=== PATIENT | male | born 1945 | race Caucasian/White ===

== ENCOUNTER 2024-03-29 14:21 | Inpatient (IN) | payer OTHER, SELFPAY ==
[2024-03-29] VITALS (11 sets, daily range): BP systolic 137–188; BP diastolic 53–92; BMI 43.3
--- NOTE | 2024-03-29 09:54 | ED.GENMED ---
History of Present Illness
General
Chief Complaint: Breathing Problem
Source: patient and ambulance crew
Exam Limitations: none
Time Seen by Provider: 03/29/24 09:53
Nursing documentation reviewed up to this point in time: agreed with
History of Present Illness
History of Present Illness:
Patient is a 79-year-old man with a past medical history of high blood pressure, coronary artery disease, and reported A-fib, who reports shortness of breath that started this morning. Patient denies cough, mucus production, fatigue, fevers and
chills. Reports that he is generally active and gets around well. He is also noticed mild swelling in both of his legs. He denies a history of PE and DVT. He denies any chest pain. Patient reports shortness of breath is worse on exertion
Past History
Past History
ED Past Medical History: HTN and KS
ED Past Surgical History: Cardiac (CABG, loop recorder), Orthopedic and Urological
Social History
Tobacco: Former smoker
Alcohol: None
Drug: None
Personal: Other
Living: penitentiary
Employment: Retired
Family History
Family History: Other
Review of Systems
Review of Systems
Allergies reviewed?: Yes
All Other Systems: ROS reviewed and negative except as documented in HPI and ROS
Constitutional: Reports no symptoms
EENT: Reports no symptoms
Respiratory: Reports trouble breathing
Cardiac: Reports no symptoms
ABD/GI: Reports no symptoms
: Reports no symptoms
Musculoskeletal: Reports edema
Skin: Reports no symptoms
Neurological: Reports no symptoms
Endocrine: Reports no symptoms
Hematologic/Lymphatic: Reports no symptoms
Psychiatric: Reports no symptoms
Phy Exam
Physical Exam
Physical Exam:
Physical Exam
General: no apparent distress, not acutely ill. Mildly tachypneic at rest but speaks in full sentences
Neck: supple. no meningeal signs. normal psoterior pharynx
Heart: Regular, bradycardic
Lungs: Decreased breath sounds bilaterally with rales at bases
Abdomen: normal bowel sounds. not tender. no CVAT
Neuro: alert and oriented. no focal neurological deficits
Skin: no rash
Psychiatric: well kept. interactive and cooperative
Extremities: 1+ pitting edema in bilateral lower extremities. Nontender calves. Negative Homans' sign
Scores
Heart Failure Risk
Heart Failure Risk Score: Not Applicable
Course
Orders/Labs/Results
Orders:
Orders
03/29/24 09:54
Electrocardiogram (*1) Stat
Reason for Study: Other
Other Reason for Exam: chest pain
EKG- Treatment ONCE
CR Chest - 2 Views Urgent
Comment:
Reason For Exam: SOB
03/29/24 10:02
Complete Blood Count/With Diff Urgent
Comprehensive Metabolic Panel Urgent
NT-proBNP Urgent
Troponin I Urgent
03/29/24 10:53
Furosemide [Lasix] 40 mg IV NOW STA
03/29/24 13:32
COVID-19 Antigen Stat
Source: Nasal Swab
Influenza A+B Rapid Molecular Stat
JESSICA Source: Nasal Swab
Specimen Description:
03/29/24 13:45
EKG [Electrocardiogram (*1)] Urgent
Reason for Study: Shortness of Breath
EKG- Treatment ONCE
03/29/24 13:48
Add On- LAB Urgent
Tests Added?: TSH with reflex FT4, HgbA1c, lipid panel
EKG [Electrocardiogram (*1)] Stat
Reason for Study: Bradycardia / Tachycardia
03/29/24 13:49
Urine Creatinine Urgent
Urine Reflex Culture from UA [Urinalysis Reflex To Culture] Urgent
Urine Sodium Urgent
03/29/24 13:52
DDimer [D-Dimer] Stat
03/29/24 13:55
CARDIOLOGY CONSULT Routine
Consulting Provider: Hazel Caban
Was physician already notified: Yes
Reason for consult: bradycardia, CHF, dyspnea
03/29/24 13:56
Echo 2D MMode Color/Doppler Routine
Reason for Study: chf
03/29/24 14:00
Troponin I Q6H
03/29/24 20:00
Troponin I Q6H
03/30/24 02:00
Troponin I Q6H
03/30/24 08:00
Troponin I Q6H
Abnormal Lab Results
03/29/24
10:02
RBC 3.99 L 10^6/uL
(4.70-6.10)
Hgb 11.3 L g/dL
(13.0-18.0)
Hct 35.9 L %
(39.0-52.0)
MCHC 31.5 L g/dL
(33.0-37.0)
Absolute Monos (auto) 0.7 H 10^3/uL
(0.1-0.6)
Lymphocytes % 19.3 L %
(20.5-51.1)
Chloride 112 H mmol/L
(98-107)
Carbon Dioxide 19 L mmol/L
(22-30)
BUN 30 H mg/dl
(9-20)
Creatinine 1.9 H mg/dL
(0.7-1.3)
Glucose 116 H mg/dl
(70-99)
AST 14 L U/L
(17-59)
03/29/24 10:02
03/29/24 10:02
Vital Signs
Initial and Last Documented VS:
Initial Vital Signs
Temp Pulse Resp BP Pulse Ox
98.6 F 69 25 145/73 95
03/29/24 09:44 03/29/24 09:44 12/09/24 09:44 03/29/24 09:44 03/29/24 09:44
Last Documented Vital Signs
Temp Pulse Resp BP Pulse Ox
98.6 F 55 26 165/53 93
03/29/24 09:44 03/29/24 14:00 03/29/24 14:00 03/29/24 13:00 03/29/24 14:00
MDM/Problems Addressed
Differential Diagnosis Includes:
Acute CHF, pneumonia, acute coronary syndrome, PE
MDM/Problems Addressed:
Patient arrives with acute shortness of breath
Chronic conditions affecting care: CAD
Acute Exacerbation and/or Progression of Chronic Illness:
Patient may have acute exacerbation of ACS
Acute Exacerbation and/or Progression of Chronic Illness: CAD
*Radiology
Radiology exam reviewed: preliminary read by ED provider (Cardiomegaly with pulmonary edema. Chest x-ray reviewed by me) and radiology read reviewed
*Pulse Oximetry
Patient hypoxic: no
*EKG
Interpreted by ED Provider?: Yes
Interpretation: abnormal
Rate: bradycardiac
Rhythm: PVC's
[place]: normal axis
Interval: first degree heart block
QRS Pattern: low voltage
Ischemia: non-specific ST changes
*Trimmer Tailer Interpretation
Rate: bradycardiac
Interpretation: normal
Rhythm: sinus
*Critical Care Note
Total Time (30-74mins, 75-104mins- exclusive of procedures): Not Applicable
ED Attending Note
-
Portions of this chart may have been created with voice recognition software.� Occasional wrong word or��sound alike� substitutions may have occurred due to the inherent limitations of voice recognition software.
Discharge Plan
Departure
Patient Disposition: Admit
Date of Disposition: 03/29/24
Time of Disposition: 10:53
Admit to: Telemetry
Presentation/result/management discussed w/ accepting MD/DO: Hospitalist
Patient with high blood pressure during this ER visit?: Yes
Condition: Good
Covid-19: Not Applicable
Discharge Problem:
Acute respiratory failure, Acute congestive heart failure
Prescriptions:
No Action
furosemide 40 mg Tablet
40 mg PO DAILY
atorvastatin 40 mg Tablet
40 mg PO DAILY
metformin 500 mg Tablet
500 mg PO BID
donepezil 10 mg Tablet
10 mg PO DAILY
metoprolol succinate 100 mg Tablet Extended Release 24 Hr
100 mg PO BID
pioglitazone 45 mg Tablet
45 mg PO DAILY
hydralazine 25 mg Tablet
25 mg PO BID
clopidogrel 75 mg Tablet
75 mg PO DAILY
pantoprazole 20 mg Tablet,Delayed Release (Dr/Ec)
20 mg PO DAILY
tamsulosin 0.4 mg Capsule
0.8 mg PO DAILY
amlodipine 10 mg Tablet
10 mg PO DAILY
isosorbide mononitrate 10 mg Tablet
5 mg PO QPM
oxybutynin chloride 5 mg Tablet
5 mg PO BID
finasteride 5 mg Tablet
5 mg PO DAILY
escitalopram oxalate 10 mg Tablet
10 mg PO DAILY
melatonin 5 mg Tablet
5 mg PO HS
potassium chloride 20 mEq Tablet Extended Release
20 meq PO DAILY
Referrals:
Edmundo Dozier MD [Family Provider] -
Interventions
Interventions:
*Risk Screen - Suicide Last Done: 03/29/24 09:44
*General Assessment Last Done: 03/29/24 09:44
*Neglect/Abuse Screening Last Done: 03/29/24 09:44
ED- Fall Risk Assessment Last Done: 03/29/24 09:59
*ED COVID-19 Vaccine History Last Done: 03/29/24 09:44
ED- Cardiac Assessment Last Done: 03/29/24 09:59
ED- Pulmonary Assessment Last Done: 12/09/24 09:59
Discharge Date and Time
Print Language: HAITIAN
[2024-03-29 10:18] LABS: % Basophils 0.7 % (0-2); % Immature Granulocytes 0.5 % (0-0.5); % Lymphocytes 19.3 % (20.5-51.1); % Monocytes 8.7 % (1.7-9.3); % Neutrophils 68.8 % (42.2-75.2); Absolute Basophils 0.1 10^3/uL (0-0.2); Absolute Eosinophils 0.2 10^3/uL (0-0.7); Absolute Lymphocytes 1.5 10^3/uL (1.2-3.4); Absolute Monocytes 0.7 10^3/uL (0.1-0.6); Absolute Neutrophils 5.2 10^3/uL (1.4-6.5); Hematocrit 35.9 % (39.0-52.0); Hemoglobin 11.3 g/dL (13.0-18.0); Mean Corp Hgb Conc. 31.5 g/dL (33.0-37.0); Mean Corpuscular Hgb 28.3 pg (27.0-31.0); Mean Platelet Volume 9.7 fL (7.4-10.4); Nucleated Red Blood Cells % 0 % (-); Platelet Count 200 10^3/uL (130-400); Red Blood Cell Count 3.99 10^6/uL (4.70-6.10); Red Cell Dist. Width 13.4 % (11.5-14.5); White Blood Cell Count 7.6 10^3/uL (4.8-10.8)
[2024-03-29 10:31] LABS: ALT (SGPT) 16 U/L (0-50); AST (SGOT) 14 U/L (17-59); Albumin 4.1 g/dl (3.5-5.0); Alkaline Phosphatase 90 U/L (38-126); Blood Urea Nitrogen 30 mg/dl (9-20); Carbon Dioxide 19 mmol/L (22-30); Chloride 112 mmol/L (98-107); Estimated Creatinine Clearance 39 ml/min; Glucose 116 mg/dl (70-99); Potassium 4.6 mmol/L (3.5-5.1); Sodium 141 mmol/L (135-145); Total Bilirubin 0.7 mg/dl (0.2-1.3); Total Protein 6.7 g/dl (6.3-8.2); eGFR 35.44
[2024-03-29 10:40] LABS: NT-proBNP 6050 pg/ml; Troponin I 0.021 ng/ml
[2024-03-29] MEDS: LASIX 40 MG IV (11:27)
[2024-03-29 14:00] LABS: COVID-19 Antigen Negative (Negative)
--- NOTE | 2024-03-29 14:10 | HPS.HSE ---
Family Physician
-
Family Physician: Edmundo Dozier
Chief Complaint
-
dyspnea
History of Present Illness
79yo M with PMHX of CAD s/p CABG 6 years ago, DM, BPH, CHF, anxiety, HTN, HLD, GERD came from [facility] with acute onset of dyspnea without hypoxia. ProBMP elevated to 6050 with b/l LE swelling and signs of vascular congestion on XR as
well as LLL consolidation.
Medical History
Past Medical History
Past Medical History: Reports Other
Additional Past Medical History:
See HPI
Past Surgical History: Reports Other
Additional Past Surgical History:
See HPI
Social History
Tobacco: Former Smoker
Alcohol: None
Drug: None
Family History
Family History: Not pertinent
Allergies / Home Medications
Allergies reflects when Allergies were last updated in [facility].
Home Medications with original date entered in [facility]
Allergy/Medication List:
Allergies
Allergy/AdvReac Type Severity Reaction Status Date / Time
Penicillins Allergy Hives Verified 03/29/24 10:03
Home Medications
amlodipine 10 mg tablet 10 mg PO DAILY 03/29/24
atorvastatin 40 mg tablet 40 mg PO DAILY 03/29/24
clopidogrel 75 mg tablet 75 mg PO DAILY 03/29/24
donepezil 10 mg tablet 10 mg PO DAILY 03/29/24
escitalopram oxalate 10 mg tablet 10 mg PO DAILY 03/29/24
finasteride 5 mg tablet 5 mg PO DAILY 03/29/24
furosemide 40 mg tablet 40 mg PO DAILY 03/29/24
hydralazine 25 mg tablet 25 mg PO BID 03/29/24
isosorbide mononitrate 10 mg tablet 5 mg PO QPM 03/29/24
melatonin 5 mg tablet 5 mg PO HS 03/29/24
metformin 500 mg tablet 500 mg PO BID 03/29/24
metoprolol succinate 100 mg tablet,extended release 24 hr 100 mg PO BID 03/29/24
oxybutynin chloride 5 mg tablet 5 mg PO BID 03/29/24
pantoprazole 20 mg tablet,delayed release 20 mg PO DAILY 03/29/24
pioglitazone 45 mg tablet 45 mg PO DAILY 03/29/24
potassium chloride 20 mEq tablet,extended release 20 meq PO DAILY 03/29/24
tamsulosin 0.4 mg capsule 0.8 mg PO DAILY 03/29/24
Review of Systems
-
History Source: Patient
A 12 point ROS was completed and negative except as noted: Yes
Respiratory: Reports See HPI
Cardiac: Denies Chest Pain
Physical Exam
Vital Signs
Vital Signs
Temp Pulse Resp BP Pulse Ox
98.6 F 55 26 165/53 93
03/29/24 09:44 03/29/24 14:00 03/29/24 14:00 03/29/24 13:00 03/29/24 14:00
Physical Exam
General: No Apparent Distress
HEENT: NormoCephalic
Respiratory: No Wheezes or Rales
Cardiac: S1/S2, Regular Rhythm and Bradycardia
GI: Soft, Non Tender and Non Distended
Genito-urinary: No costovertebral tender
Musculoskeletal: No Clubbing, No Cyanosis, Edema, Left Lower Extremity and Edema, Right Lower Extremity
Skin: Warm
Neuro: Awake, Alert, Oriented and AO x 3
Psych: Calm
Laboratory Results
-
03/29/24 10:02
03/29/24 10:02
Laboratory Results
Total Bilirubin 0.7 mg/dl (0.2-1.3) 03/29/24 10:02
AST 14 U/L (17-59) L 03/29/24 10:02
ALT 16 U/L (0-50) 03/29/24 10:02
Alkaline Phosphatase 90 U/L (38-126) 03/29/24 10:02
Troponin I 0.021 ng/ml 03/29/24 10:02
Data Reviewed
-
Diagnostic Radiology: Report Reviewed by me
Lab Data: Labs Reviewed by me
Impression/Plan
-
A/P:
#Dyspnea without hypoxia with concern for possible CHF
#Bradycardia
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
Lasix, daily weight, electrolytes, I&O
Echo
Follow serial trop
Avoid BB and CCB
Telemetry, Atropin PRN
Due to acute onset - reasonable to r/o PE with DDimer as Wells score low
Ceftriaxone/DOxy
Check COVID-19, Influenza PCR
Legionella and S. Pneumonia urine Ag
CHeck TSH
#EBENEZER
unclear baseline Cr
Follow Cr and check urine studies. Suspect improvement with diuresis as cardiorenal possible
#Essential HTN
#GERD
#BPH
#HLD
cont home meds
watch for urinary retention
#DM type 2 with nephropathy
Accuchecks, Insulin SS, DM diet
Hold oral antiglycemics
DVT ppx on Hep
FUll code - discussed in details with patient
I have spent at least 79min reviewing chart, test results, communication with consultants and direct patient care
[2024-03-29 14:50] LABS: Troponin I 0.022 ng/ml
--- NOTE | 2024-03-29 14:53 | CON.CAR ---
Addendum entered and electronically signed by Hazel Caban DO 03/29/24 17:31:
Return to room with son present. Patient was moved to this area in September but not initially at [facility]. Has only been at [facility] for about 1 week. Per son and patient there is no history of atrial fibrillation which is why the Linq was placed.
Will try to interrogate Linq tomorrow. Both patient and son deny known history of renal disease and he was not previously seeing a school photographs detailer. Again records have been requested. Son Adebayo Elliott, #[phone] is power of tax attorney. Patient
also is DNR/DN. Hospitalist team updated
Addendum entered and electronically signed by Hazle Caban DO 03/29/24 16:43:
I saw and examined the patient.
The Manager Athletics's note was reviewed and I agree with the note.
Comment: Patient seen and examined in ED 37 with cardiac PA. Patient is a 79-year-old gentleman with dementia who recently moved to this area in September and is currently residing at [facility]. He previously resided in [place] with
a history of coronary artery disease and remote CABG many years ago and possibly prior stents. He also has a history of prior strokes and paroxysmal atrial fibrillation. He has an Pinto Linq implanted in 2020, history of hypertension,
dyslipidemia, type 2 diabetes mellitus, and obstructive sleep apnea on CPAP. He presents to the emergency department with progressive worsening shortness of breath and lower extremity edema over the last month. He denies chest pain or pressure
although history is unreliable. EMS record reports he had a brief period where his chest felt heavy which subsided prior to their arrival. At the time of EMS evaluation, blood pressure was 174/88, pulse 54, pulse ox 93% on room air. Per EMS
records, he did not receive any of his medications this morning at his home. In the emergency department, initial vitals afebrile, blood pressure 145/73, pulse 69 and pulse ox 95% on nasal cannula O2. Chest x-ray with mild left basilar opacity
concerning for pneumonia and increased interstitial markings, proBNP elevated at 650. Initial cardiac troponin 0.021. EKG sinus bradycardia with first-degree AV block and frequent PVCs as well as septal infarct pattern. Telemetry sinus
bradycardia without significant pauses. COVID-negative. Influenza and urinary Legionella negative. He was started on IV Lasix as well as IV antibiotics
GEN: No distress, awake, Ox3, lying in ER bed, nc O2 2 LPM
HEENT: mmm
LUNGS: Few scattered wheezes with decreased breath sound at left base, few crackles at bases
CV: Reg, S1/S2, 2/6 SM
ABD: soft, BS+, NT/ND
EXT: +2 bilateral lower extremity edema
Plan:
Hypoxemic respiratory distress consistent with heart failure getting left lower lobe pneumonia
-Acute heart failure with unknown ejection fraction, proBNP 6050
-Continue IV Lasix and monitor renal function. Unknown baseline Cr
-Elevated D-dimer 0.82�renal function precludes CTA. Consider VQ scan, defer to primary
-Plan for 2D echocardiogram and will also try to obtain records from his pond scaler previously in [place]
-Optimize medical therapy as able pending review of 2D echocardiogram and prior records
Left lower lobe pneumonia�antibiotics and pulmonary toilet per primary.
Sinus bradycardia on high dose metoprolol with history of paroxysmal atrial fibrillation
-Monitor on telemetry
-Will reduce Toprol XL from 100 mg twice daily to 50 mg twice daily with hold parameters
-Patient is not currently on anticoagulation for unclear reasons. Await review of prior records
-Would check echo
-TSH within normal
Coronary artery disease with history of remote CABG
-Unclear reports of chest pain currently denying
-Cardiac troponin not elevated. Will stop checking after third set unless symptoms recur
-Presented on outpatient aspirin and Plavix, continue for now until records can be reviewed
-Lipids 03/29/2024 TC 125, HDL 51, LDL 50, triglycerides 121, continue atorvastatin
History of stroke
-Although there is a reported history of paroxysmal atrial fibrillation he is not anticoagulated. Awaiting records for review
-Continue Plavix/aspirin at this time
-Hypertension
-Await echocardiogram and adjust medications per results. For now we will continue amlodipine, hydralazine, Imdur, metoprolol (Will reduce dose to 50 mg BID)
-Requested records from outside pond scaler Adebayo Gutierrez in [facility] , fax [phone].
Type 2 diabetes mellitus, HbA1C 6.1%
-Would hold metformin with renal insufficiency.
-Would also discontinue pioglitazone given admission for heart failure
Will follow with you
Original Note:
Consultation
Consultation Request
Date/Time Consultation Requested: 03/29/2024
Date/Time Consultation Performed: 03/29/2024
Requesting Provider: Dr. Mclaughlin
Performing Provider: Maribell Desai PA-C for Dr. Hazel Caban
Reason for Consultation: Shortness of breath
Medical History
-
History of Present Illness:
HPI 03/29/2024:
Patient is a 79-year-old male with past medical history significant for coronary artery disease status post CABG and remote PCI, paroxysmal atrial fibrillation with reported long-term implantable monitor, hypertension, hyperlipidemia, heart failure
with unknown ejection fraction, type 2 diabetes, BPH, strokes, GERD, poor memory and anxiety who presents to emergency department 03/29/2024 with progressively worsening dyspnea on exertion and lower extremity edema x 1 month. Patient reports he
awoke this morning and had shortness of breath at rest as well as with minimal activity prompting him to come to emergency department. proBNP found to be elevated at 6050. Chest x-ray showed mild cardiomegaly with left basilar opacity concerning
for pneumonia. Initial troponin negative at 0.021. EKG showed sinus bradycardia with heart rates in the 50s and low 60s with first-degree AV block and occasional PVCs. Patient was COVID and flu negative. BUN 30, creatinine 1.9. D-dimer pending
I talked with patients son, Adebayo who is POA. He reports dad is poor historian. He thinks he had CABG at [place] many years ago but cannot be sure. He has resided in [place] until September 2023 and was followed by Dr. Adebayo Gutierrez pond scaler there.
Son relocated patient to [facility] assisted care in September 2023.
PMH:
Coronary artery disease
Status post CABG (thinks at [place])
Coronary stent
Paroxysmal atrial fibrillation
Old Strokes
Implanted athletic monitor, Pinto device implanted 10/04/2020
Hypertension
Hyperlipidemia
Heart failure with unknown ejection fraction
Diabetes
ELIAS with CPAP
BPH
GERD
Poor memory/dementia
Anxiety
Past Medical History
Past Medical History: Other (See HPI)
Past Surgical History: Cardiac (CABG, coronary stent)
Social History
Tobacco: Former Smoker
Alcohol: None
Drug: None
Personal:
Living: Assisted Living ([facility])
Family History
Family History: Reviewed & Not Pertinent
Allergies / Home Medications
Allergy/AdvReac Type Severity Reaction Status Date / Time
Penicillins Allergy Hives Verified 03/29/24 10:03
�Medication �Instructions �Recorded �Confirmed �Type
amlodipine 10 mg tablet 10 mg PO DAILY 03/29/24 03/29/24 History
atorvastatin 40 mg tablet 40 mg PO DAILY 03/29/24 03/29/24 History
clopidogrel 75 mg tablet 75 mg PO DAILY 03/29/24 03/29/24 History
donepezil 10 mg tablet 10 mg PO DAILY 03/29/24 03/29/24 History
escitalopram oxalate 10 mg tablet 10 mg PO DAILY 03/29/24 03/29/24 History
finasteride 5 mg tablet 5 mg PO DAILY 03/29/24 03/29/24 History
furosemide 40 mg tablet 40 mg PO DAILY 03/29/24 03/29/24 History
hydralazine 25 mg tablet 25 mg PO BID 03/29/24 03/29/24 History
isosorbide mononitrate 10 mg tablet 5 mg PO QPM 03/29/24 03/29/24 History
melatonin 5 mg tablet 5 mg PO HS 03/29/24 03/29/24 History
metformin 500 mg tablet 500 mg PO BID 03/29/24 03/29/24 History
metoprolol succinate 100 mg 100 mg PO BID 03/29/24 03/29/24 History
tablet,extended release 24 hr
oxybutynin chloride 5 mg tablet 5 mg PO BID 03/29/24 03/29/24 History
pantoprazole 20 mg tablet,delayed 20 mg PO DAILY 03/29/24 03/29/24 History
release
pioglitazone 45 mg tablet 45 mg PO DAILY 03/29/24 03/29/24 History
potassium chloride 20 mEq 20 meq PO DAILY 03/29/24 03/29/24 History
tablet,extended release
tamsulosin 0.4 mg capsule 0.8 mg PO DAILY 03/29/24 03/29/24 History
Review of Systems
-
History Source: Patient and Family
Physical Exam
Vital Signs
Temp Pulse Resp BP Pulse Ox
98.6 F 55 26 165/53 93
03/29/24 09:44 03/29/24 14:00 03/29/24 14:00 03/29/24 13:00 03/29/24 14:00
GEN: No distress, awake, Ox3, lying in bed wearing oxygen
HEENT: supple, anicteric, mmm
LUNGS: Few scattered wheezes with decreased breath sound at left base, few crackles at bases; wearing 2 L of oxygen via nasal cannula
CV: Reg, S1/S2, 2/6 syst murmur
ABD: soft, BS+, NT/ND
EXT: +2 bilateral lower extremity edema
NEURO: Gross non-focal
SKIN: No rash, warm, dry, pink
Lab Results
03/29/24 10:02
03/29/24 10:02
Troponin I 0.022 ng/ml 03/29/24 14:13
Ura-X-Wxkbtjawizs Pept 6050 pg/ml 03/29/24 10:02
Impression / Plan
-
PCP: Dr. Edmundo Dozier
Senior Caregiver: Adebayo Gutierrez in [place], [place]
Impression:
Presents 03/29/2024 with progressively worsening dyspnea on exertion, edema and weight gain
Acute heart failure with unknown ejection fraction, proBNP 6050
Possible pneumonia
EBENEZER, unknown baseline
Coronary artery disease
Status post CABG (at least 10 years ago at [place])
Coronary stent
Paroxysmal atrial fibrillation
Implanted athletic monitor, Pinto device implanted 10/04/2020
Hypertension
Hyperlipidemia
Heart failure with unknown ejection fraction
Diabetes
ELIAS with CPAP
BPH
GERD
Old Strokes
Poor memory/dementia
Anxiety
Echo 03/29/2024: Pending
Plan:
-Presents 03/29/2024 with progressively worsening dyspnea on exertion, edema and weight gain.
-Acute heart failure with unknown ejection fraction, proBNP 6050
-Got IV Lasix 40 mg x 1 in ED, continue to monitor and assess response to diuresis
-Admission creat 1.9, unknown baseline. Continue to monitor with diuresis
-Would check echo
-EKG on admission shows sinus bradycardia with first-degree AV block with heart rates primarily in the 50s to low 60s. Patient is on Toprol 100 mg twice daily per skilled nursing records. Would not discontinue beta-brennan altogether. Will reduce to
50 mg twice a day and monitor his heart rate on telemetry.
-Concern for pneumonia, getting IV antibiotics per primary service
-Continue Plavix for history of previous stroke and coronary artery disease
-Lipids 03/29/2024 TC 125, HDL 51, LDL 50, triglycerides 121, continue atorvastatin
-Hypertension, continue amlodipine, hydralazine, metoprolol (Will reduce dose to 50 mg BID)
-Requested records from outside pond scaler Adebayo Gutierrez in [facility] , fax [phone].
Discussed above with patient's son who helps to provide history
HPI 03/29/2024:
Patient is a 79-year-old male with past medical history significant for coronary artery disease status post CABG and remote PCI, paroxysmal atrial fibrillation with reported long-term implantable monitor, hypertension, hyperlipidemia, heart failure
with unknown ejection fraction, type 2 diabetes, BPH, strokes, GERD, poor memory and anxiety who presents to emergency department 03/29/2024 with progressively worsening dyspnea on exertion and lower extremity edema x 1 month. Patient reports he
awoke this morning and had shortness of breath at rest as well as with minimal activity prompting him to come to emergency department. proBNP found to be elevated at 6050. Chest x-ray showed mild cardiomegaly with left basilar opacity concerning
for pneumonia. Initial troponin negative at 0.021. EKG showed sinus bradycardia with heart rates in the 50s and low 60s with first-degree AV block and occasional PVCs. Patient was COVID and flu negative. BUN 30, creatinine 1.9. D-dimer pending
I talked with patients son, Adebayo who is POA. He reports dad is poor historian. He thinks he had CABG at [place] many years ago but cannot be sure. He has resided in [place] until September 2023 and was followed by Dr. Adebayo Gutierrez pond scaler there.
Son relocated patient to [facility] in assisted care in September 2023.
Data Reviewed
-
EKG: Report Reviewed by me, Discussed with Physician, Discussed with Patient and Discussed with Family
Radiology: Report Reviewed by me, Discussed with Physician, Discussed with Patient and Discussed with Family
Labs: Labs Reviewed by me, Discussed with Physician, Discussed with Patient and Discussed with Family
Old Records: Requested
[2024-03-29 15:13] LABS: Urine Albumin Negative (Neg - Trace); Urine Bilirubin Negative (Negative); Urine Character Clear (Clear); Urine Color Yellow; Urine Glucose Negative (Negative); Urine Ketone Negative (Negative); Urine Leukocyte Negative (Negative); Urine Nitrite Negative (Negative); Urine Occult Blood Negative (Negative); Urine Urobilinogen Negative (Neg - 1+)
[2024-03-29 15:19] LABS: HDL Cholesterol 51 mg/dl; LDL Cholesterol, Calculated 50 mg/dl; Total Cholesterol 125 mg/dl (50-199); Triglyceride 121 mg/dl (10-149); Very Low Density Lipoprotein 24 mg/dl (0-30)
[2024-03-29 15:28] LABS: D-Dimer 0.82 ug/mlFEU (0.00-0.50)
[2024-03-29 15:34] LABS: Urine Sodium 134 mmol/L (30-90)
[2024-03-29 16:27] LABS: TSH Reflex To Free T4 2.17 uIU/ml (0.47-4.68)
[2024-03-29] MEDS: STERILE WATER FOR INJECTION 10 ML IV (16:54)
[2024-03-29] MEDS: HEPARIN 5000 UNITS SC (16:55)
[2024-03-29] MEDS: ROCEPHIN 1000 MG IV (16:55)
[2024-03-29 17:53] LABS: Glucose - Point of Care 125 mg/dl (70-99)
[2024-03-29] MEDS: NOVOLOG FLEXPEN-LOW RESISTANCE SC (18:36)
[2024-03-29] MEDS: ISMO 5 MG PO (18:38)
[2024-03-29] MEDS: DITROPAN 5 MG PO (20:08)
[2024-03-29] MEDS: VIBRAMYCIN 100 MG PO (20:08)
[2024-03-29] MEDS: APRESOLINE 25 MG PO (20:08)
[2024-03-29] MEDS: TOPROL XL 50 MG PO (20:08)
[2024-03-29 20:27] LABS: Troponin I 0.024 ng/ml
[2024-03-29 22:11] LABS: Glucose - Point of Care 125 mg/dl (70-99)
[2024-03-30] MEDS: HEPARIN 5000 UNITS SC ×3 (00:09→16:08)
--- NOTE | 2024-03-30 01:27 | PTCARENOTE ---
Received care of patient at change of shift. Pt AAOx3, VSS. Oriented to room, call epstein and plan of care.
[2024-03-30 02:44] LABS: Troponin I 0.029 ng/ml
[2024-03-30 03:05] VITALS: BP 162/80
[2024-03-30 04:00] VITALS: BMI 41.7
[2024-03-30 07:34] VITALS: BP 160/80
[2024-03-30 07:46] LABS: Glucose - Point of Care 132 mg/dl (70-99)
[2024-03-30 08:31] LABS: Glycohemoglobin (HgbA1c) 6.3 % (4.0-5.6)
[2024-03-30 08:32] LABS: % Basophils 0.4 % (0-2); % Eosinophils 2.1 % (0-6); % Immature Granulocytes 0.4 % (0-0.5); % Lymphocytes 18.2 % (20.5-51.1); % Monocytes 9.7 % (1.7-9.3); % Neutrophils 69.2 % (42.2-75.2); Absolute Eosinophils 0.2 10^3/uL (0-0.7); Absolute Lymphocytes 1.3 10^3/uL (1.2-3.4); Absolute Monocytes 0.7 10^3/uL (0.1-0.6); Absolute Neutrophils 4.9 10^3/uL (1.4-6.5); Hematocrit 36.5 % (39.0-52.0); Mean Corp Hgb Conc. 32.9 g/dL (33.0-37.0); Mean Corpuscular Hgb 29.1 pg (27.0-31.0); Mean Corpuscular Volume 88.6 fL (80.0-94.0); Mean Platelet Volume 9.9 fL (7.4-10.4); Nucleated Red Blood Cells % 0 % (-); Platelet Count 236 10^3/uL (130-400); Red Blood Cell Count 4.12 10^6/uL (4.70-6.10); Red Cell Dist. Width 13.4 % (11.5-14.5)
[2024-03-30] MEDS: NOVOLOG FLEXPEN-LOW RESISTANCE SC ×3 (08:48→16:09)
[2024-03-30] MEDS: KCL 20 MEQ PO (08:49)
[2024-03-30] MEDS: LASIX 40 MG IV (08:49)
[2024-03-30] MEDS: NORVASC 10 MG PO (08:49)
[2024-03-30] MEDS: FLOMAX 0.8 MG PO (08:50)
[2024-03-30 08:51] LABS: Troponin I 0.026 ng/ml
[2024-03-30] MEDS: VIBRAMYCIN 100 MG PO ×2 (08:51→20:15)
[2024-03-30] MEDS: TOPROL XL 50 MG PO ×2 (08:51→20:15)
[2024-03-30] MEDS: APRESOLINE 25 MG PO (08:51)
[2024-03-30] MEDS: PLAVIX 75 MG PO (08:51)
[2024-03-30] MEDS: LIPITOR 40 MG PO (08:52)
[2024-03-30] MEDS: ARICEPT 10 MG PO (08:52)
[2024-03-30] MEDS: DITROPAN 5 MG PO ×2 (08:52→20:14)
[2024-03-30] MEDS: PROTONIX 20 MG PO (08:52)
[2024-03-30] MEDS: PROSCAR 5 MG PO (08:52)
[2024-03-30] MEDS: LEXAPRO 10 MG PO (08:53)
[2024-03-30 09:29] LABS: ALT (SGPT) 14 U/L (0-50); AST (SGOT) 16 U/L (17-59); Albumin 4.1 g/dl (3.5-5.0); Alkaline Phosphatase 100 U/L (38-126); Blood Urea Nitrogen 26 mg/dl (9-20); Calcium 9.2 mg/dl (8.4-10.2); Carbon Dioxide 19 mmol/L (22-30); Chloride 110 mmol/L (98-107); Estimated Creatinine Clearance 42 ml/min; Glucose 117 mg/dl (70-99); Potassium 4.2 mmol/L (3.5-5.1); Sodium 141 mmol/L (135-145); Total Bilirubin 0.6 mg/dl (0.2-1.3); Total Protein 6.7 g/dl (6.3-8.2)
--- NOTE | 2024-03-30 10:41 | W.PN.HOSP.TC ---
Addendum entered and electronically signed by Benigno Mclaughlin MD 03/30/24 16:10:
#Anterior to the bladder in the midline, there is an ovoid cystic mass with diameter 4.7 cm
MRI as condition improves
Original Note:
Today's Communication/Plan
-
see PN
Assessment / Plan
Assessment / Plan
79yo M with PMHX of CAD s/p CABG 6 years ago, DM, BPH, CHF, anxiety, HTN, HLD, GERD came from [facility] assisted living with acute onset of dyspnea without hypoxia. ProBMP elevated to 6050 with b/l LE swelling and signs of vascular congestion on XR as
well as LLL consolidation.
A/P:
#Dyspnea without hypoxia with concern for possible CHF
#Bradycardia
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
#LLL pneumonia
Cardiology consult: decreased BB
Lasix, daily weight, electrolytes, I&O
Echo
serial trops stable low
Telemetry, Atropin PRN
Minimally elevated ddimer with EBENEZER - most likely 2/2 acute disease, reasonable V/Q scan and LE US to rule out VTE
Ceftriaxone/Doxy
COVID-19, Influenza PCR neg
Legionella and S. Pneumonia urine Ag neg
TSH WNL
#EBENEZER
unclear baseline Cr
Follow Cr - improving with diuresis
FeNA 7.5% - most likely intrinsic component - nephrology consult
Renal US
Obtain records
#Essential HTN
#GERD
#BPH
#HLD
cont home meds
watch for urinary retention
#DM type 2 with nephropathy
AccuCheck, Insulin SS, DM diet
Hold oral antiglycemic: stop metformin and pioglitazone on d/c
DVT ppx on Hep
DNR/DNI - discussed in details with patient
I have spent at least 59min reviewing chart, test results, communication with consultants and direct patient care
Anticipated Discharge: > 48 hours
Subjective/Interval History
-
Date of Service: March 30, 2024
Objective Data
-
Labs:
Laboratory Results
03/30/24
08:18
WBC 7.0
Hgb 12.0 L
Hct 36.5 L
Plt Count 236
Sodium 141
Potassium 4.2
Chloride 110 H
Carbon Dioxide 19 L
BUN 26 H
Creatinine 1.7 H
Glucose 117 H
Calcium 9.2
Total Bilirubin 0.6
AST 16 L
ALT 14
Alkaline Phosphatase 100
Vital Signs:
Vital Signs
Temp Pulse Resp BP Pulse Ox
98.7 F 64 19 160/80 97
03/30/24 07:34 03/30/24 07:34 03/30/24 07:34 03/30/24 07:34 03/30/24 07:34
I&O
03/29/24 03/30/24 03/31/24
06:59 06:59 06:59
Output Total 925 / 925
Balance -925 / -925
Physical Exam
-
General: No Apparent Distress
HEENT: Normocephalic
GI: Soft, Nontender and Nondistended
Musculoskeletal: No Clubbing, No Cyanosis, Edema, Right Lower Extrem and Edema, Left Lower Extrem
Skin: Warm
Neuro: Awake, Alert, Oriented and AO x 3
Psych: Calm
[2024-03-30 11:19] VITALS: BP 170/72
--- NOTE | 2024-03-30 12:49 | W.PN.CARDCBS ---
Addendum entered and electronically signed by Crescencio Johnson MD 03/30/24 13:55:
I saw and examined the patient.
The NUTRITION REPRESENTATIVE or PA's note was reviewed and I agree with the note.
Comment: General: Well developed, well nourished in NAD.
Neck: Supple, no JVD, HJR, carotids +2 B/L, no bruits bilaterally.
Heart: Non displaced PMI, irregular, no murmurs, No S3, S4, no rubs.
Lungs: Scattered rhonchi
Extremities: No clubbing, cyanosis or edema bilaterally.
Neuro: Grossly nonfocal, awake, alert and oriented x3.
Will continue diuresis. Check echocardiogram. Increase hydralazine for hypertension.
Original Note:
Today's Communication / Plan
-
continue diuresis
follow Cr
awaiting results of echo, VQ, LE US
increase hydralazine
Impression / Plan
-
PCP: Dr. Edmundo Dozier
Product Sales Engineer: Adebayo Gutierrez in [place], [place]
Impression:
Presents 03/29/2024 with progressively worsening dyspnea on exertion, edema and weight gain
Acute heart failure with unknown ejection fraction, proBNP 6050
Possible pneumonia
EBENEZER, unknown baseline
Coronary artery disease
Status post CABG (at least 10 years ago at [facility])
Coronary stent
Paroxysmal atrial fibrillation
Implanted monitor worker, Pinto device implanted 10/04/2020
Hypertension
Hyperlipidemia
Heart failure with unknown ejection fraction
Diabetes
ELIAS with CPAP
BPH
GERD
Old Strokes
Poor memory/dementia
Anxiety
Echo 03/29/2024: pending
Plan:
-Presents 03/29/2024 with progressively worsening dyspnea on exertion, edema and weight gain.
-continue diuresis with IV lasix. Cr slightly improved today to 1.7. continue to follow with diuresis
-echo pending
-ddimer was mildly elevated at 0.82. for VQ and peripheral vascular US to rule out DVT/PE
-Toprol dose reduced this admission due to sinus bradycardia. Blood pressure remains elevated. Continue amlodipine 10 mg daily. Will increase hydralazine to 50 mg twice daily and follow blood pressure trends
-Continue Plavix for history of stroke and CAD
-awaiting records from outside geological specialist Adebayo Gutierrez in [facility] , fax [phone].
HPI 03/29/2024:
Patient is a 79-year-old male with past medical history significant for coronary artery disease status post CABG and remote PCI, paroxysmal atrial fibrillation with reported long-term implantable monitor, hypertension, hyperlipidemia, heart failure
with unknown ejection fraction, type 2 diabetes, BPH, strokes, GERD, poor memory and anxiety who presents to emergency department 03/29/2024 with progressively worsening dyspnea on exertion and lower extremity edema x 1 month. Patient reports he
awoke this morning and had shortness of breath at rest as well as with minimal activity prompting him to come to emergency department. proBNP found to be elevated at 6050. Chest x-ray showed mild cardiomegaly with left basilar opacity concerning
for pneumonia. Initial troponin negative at 0.021. EKG showed sinus bradycardia with heart rates in the 50s and low 60s with first-degree AV block and occasional PVCs. Patient was COVID and flu negative. BUN 30, creatinine 1.9. D-dimer pending
I talked with patients son, Adebayo who is POA. He reports dad is poor historian. He thinks he had CABG at [facility] many years ago but cannot be sure. He has resided in [place] until September 2023 and was followed by Dr. Adebayo Gutierrez geological specialist there.
Son relocated patient to [facility] in assisted care in September 2023.
Progress Note - Product Sales Engineer
Subjective
Date of Service: March 30, 2024
no issues overnight noted
Objective
Labs:
03/30/24 08:18
03/30/24 08:18
Labs
Hgb 12.0 g/dL (13.0-18.0) L 03/30/24 08:18
Hct 36.5 % (39.0-52.0) L 03/30/24 08:18
Plt Count 236 10^3/uL (130-400) 03/30/24 08:18
Sodium 141 mmol/L (135-145) 03/30/24 08:18
Potassium 4.2 mmol/L (3.5-5.1) 03/30/24 08:18
BUN 26 mg/dl (9-20) H 03/30/24 08:18
Creatinine 1.7 mg/dL (0.7-1.3) H 03/30/24 08:18
Glucose 117 mg/dl (70-99) H 03/30/24 08:18
Troponins
03/29/24 03/29/24 03/29/24
10:02 14:13 19:57
Troponin I 0.021 0.022 0.024
03/30/24 03/30/24
02:15 08:18
Troponin I 0.029 0.026
Vital Signs and I&O:
Vital Signs
Temp Pulse Resp BP Pulse Ox
98.1 F 64 20 170/72 96
03/30/24 11:19 03/30/24 11:19 03/30/24 11:19 03/30/24 11:19 03/30/24 11:19
Vital Signs
Temp Pulse Resp BP Pulse Ox
98.1 F 64 20 170/72 96
03/30/24 11:19 03/30/24 11:19 03/30/24 11:19 03/30/24 11:19 03/30/24 11:19
Intake & Output
03/28/24 03/29/24 03/30/24 03/31/24
07:59 07:59 07:59 07:59
Output Total 925 / 925
Balance -196 / -652
[2024-03-30 14:13] LABS: Glucose - Point of Care 136 mg/dl (70-99)
--- NOTE | 2024-03-30 14:36 | PN.CDI ---
CDI
- -
CDI:
Physician Documentation Request
Admit Date: 03/29/24 14:21
Dear Doctor Arnoldo,
Please review the following and provide your response in the progress notes.
Clinical Indicators:
Height: 5'6'
Weight: 258lb 8oz
BMI: 41.7
Other Clinical Notes: Pt admitted with worsening dyspnea on exertion/acute heart failure unknown EF.
If possible, please provide an associated diagnosis related to the abnormal BMI, such as:
BMI > or = to 40
Overweight
Obesity:
Due to excess calories
Drug induced
Due to other cause
Severe or morbid obesity:
With alveolar hypoventilation (Obesity hypoventilation syndrome)
Without alveolar hypoventilation
Obesity
Morbid Obesity
Overweight
BMI is not significant
Other
Use of terms such as suspected, likely, concern for, or probable (associated with a specific diagnosis that is being evaluated, monitored, or treated as if it exists) are acceptable and can be coded in the inpatient setting, when documented at the
time of discharge.
Thank you,
Ev Walters RN, BSN
CDI Specialist
Available via [place] [employer]
Please use your independent medical judgment in providing your response.
[2024-03-30 15:20] VITALS: BP 156/77
[2024-03-30 16:05] LABS: Glucose - Point of Care 131 mg/dl (70-99)
[2024-03-30] MEDS: ROCEPHIN 1000 MG IV (16:08)
[2024-03-30] MEDS: STERILE WATER FOR INJECTION 10 ML IV (16:08)
[2024-03-30] MEDS: ISMO 5 MG PO (16:19)
--- NOTE | 2024-03-30 16:43 | CM ---
used car manager reviewed patient's chart and met with patient and patient states that he lives alone at the [facility], is independent with adl's and ambulation, patient has a scooter that he is going to start using when he returns.
PCP: Edmundo Dozier
Plan; To return to [facility] when stable.
--- NOTE | 2024-03-30 17:12 | W.CON.NEPH ---
Consultation
-
Date/Time Consultation Requested: 03/30/2024 10:00
Date/Time Consultation Performed: 03/30/2024 5:00 pm
Requesting Provider: Dr. Tabares
Performing Provider: Dr. Burt
Reason for Consultation: Acute kidney injury
Medical History
-
Chief Complaint: Acute kidney injury
History of Present Illness:
Patient is a 79-year-old male with a past medical history of hypertension maintained on amlodipine, metoprolol and hydralazine. He has a history of diabetes and is maintained on pioglitazone and metformin. He states he has a prior history of
coronary artery disease and is maintained on statin Plavix and beta-brennan therapy. He states he has undergone previous stenting procedures with his heart. He does have a history of congestive heart failure and is chronically maintained on 40 mg
of Lasix daily. He presented to the hospital from assisted living with acute onset of chest pain an shortness of breath and hypoxia with suspected congestive heart failure and a possible left lower lobe pneumonic consolidation. When he presented
to the hospital his creatinine was elevated to 1.9. It is now down to 1.7 and nephrology was asked to see the patient for acute kidney injury. A prior creatinine level of 1.1 was located in the electronic medical record from March 2008.
Past Medical History
Coronary artery disease
Status post CABG (at least 10 years ago at [facility])
Coronary stent
Paroxysmal atrial fibrillation
Implanted nuclear monitoring technician, Pinto device implanted 10/04/2020
Hypertension
Hyperlipidemia
Heart failure with unknown ejection fraction
Diabetes
ELIAS with CPAP
BPH
GERD
Old Strokes
Poor memory/dementia
Anxiety
Social History
Tobacco: Former Smoker
Alcohol: None
Drug: None
Family History
Family History: Not Pertinent
Allergies / Home Medications
Allergy/AdvReac Type Severity Reaction Status Date / Time
Penicillins Allergy Hives Verified 03/29/24 10:03
�Medication �Instructions �Recorded �Confirmed �Type
amlodipine 10 mg tablet 10 mg PO DAILY Blood Pressure 03/29/24 03/29/24 History
atorvastatin 40 mg tablet 40 mg PO DAILY High Cholesterol 03/29/24 03/29/24 History
clopidogrel 75 mg tablet 75 mg PO DAILY Blood Clot 03/29/24 03/29/24 History
Prevention/Tx
donepezil 10 mg tablet 10 mg PO DAILY Mental 03/29/24 03/29/24 History
Health/Anxiety
escitalopram oxalate 10 mg tablet 10 mg PO DAILY Mental 03/29/24 03/29/24 History
Health/Anxiety
finasteride 5 mg tablet 5 mg PO DAILY BPH 03/29/24 03/29/24 History
furosemide 40 mg tablet 40 mg PO DAILY Fluid 03/29/24 03/29/24 History
Retention/Swelling
hydralazine 25 mg tablet 25 mg PO BID Blood Pressure 03/29/24 03/29/24 History
isosorbide mononitrate 10 mg tablet 5 mg PO QPM Heart Failure 03/29/24 03/29/24 History
melatonin 5 mg tablet 5 mg PO HS Sleep 03/29/24 03/29/24 History
metformin 500 mg tablet 500 mg PO BID Diabetes 03/29/24 03/29/24 History
metoprolol succinate 100 mg 100 mg PO BID Heart Failure 03/29/24 03/29/24 History
tablet,extended release 24 hr
oxybutynin chloride 5 mg tablet 5 mg PO BID Urinary Issue 03/29/24 03/29/24 History
pantoprazole 20 mg tablet,delayed 20 mg PO DAILY GERD 03/29/24 03/29/24 History
release
pioglitazone 45 mg tablet 45 mg PO DAILY Diabetes 03/29/24 03/29/24 History
potassium chloride 20 mEq 20 meq PO DAILY Supplement 03/29/24 03/29/24 History
tablet,extended release
tamsulosin 0.4 mg capsule 0.8 mg PO DAILY Urinary Issue 03/29/24 03/29/24 History
Review of Systems
-
All other systems: Negative unless noted
Respiratory: Trouble Breathing
Physical Exam
Vital Signs
Vital Signs
Temp Pulse Resp BP Pulse Ox
97.8 F 60 19 156/77 97
03/30/24 15:20 03/30/24 15:20 03/30/24 15:20 03/30/24 15:20 03/30/24 15:20
Lab Results
03/30/24 08:18
03/30/24 08:18
WBC 7.0 10^3/uL (4.8-10.8) 03/30/24 08:18
RBC 4.12 10^6/uL (4.70-6.10) L 03/30/24 08:18
Hgb 12.0 g/dL (13.0-18.0) L 03/30/24 08:18
Hct 36.5 % (39.0-52.0) L 03/30/24 08:18
Plt Count 236 10^3/uL (130-400) 03/30/24 08:18
Sodium 141 mmol/L (135-145) 03/30/24 08:18
Potassium 4.2 mmol/L (3.5-5.1) 03/30/24 08:18
Chloride 110 mmol/L (98-107) H 03/30/24 08:18
Carbon Dioxide 19 mmol/L (22-30) L 03/30/24 08:18
BUN 26 mg/dl (9-20) H 03/30/24 08:18
Creatinine 1.7 mg/dL (0.7-1.3) H 03/30/24 08:18
eGFR 40.50 03/30/24 08:18
Glucose 117 mg/dl (70-99) H 03/30/24 08:18
Calcium 9.2 mg/dl (8.4-10.2) 03/30/24 08:18
Zny-Z-Fugazzjhvbx Pept 6050 pg/ml 03/29/24 10:02
Albumin 4.1 g/dl (3.5-5.0) 03/30/24 08:18
Physical Exam
General: AOx3, Nontoxic , NAD
HEENT: PERRL, EOMI, Anicteric, Conjunctivae Clear, Ear/Nose Intact, Hearing Normal, Oropharynx Clear/Moist, Dentition Intact, Facial Symmetry, Neck Supple, Neck: Trachea Midline, No JVD and No Thyromegaly, no Bruits
Respiratory: Coarse to auscultation decreased breath sounds towards the bases and with normal lung excursion
Cardiac: S1/S2 and Regular Rate/Rhythm
Breast: Deferred by me
Abdomen: Soft, Nontender, Nondistended, Normal Bowel Sounds and No Hepatosplenomegaly
Rectal: Deferred by Provider
Genito-urinary: No Costovertebral Tenderness
Extremities: No Clubbing, No Cyanosis and trace Edema
Skin: No Rash or open lesions
Neuro: Nonfocal/Grossly Intact, CN II-XII (Intact) and Strength (Musculoskeletal exam 5 out of 5 both upper and lower extremities)
Hematologic/Lymphatic: No Cervical Lymphadenopathy, No Submandibular Lymphadenopathy and No Supraclavicular Lymphadenopathy
Psych: Mood/afflect pleasant, Insight/judgement good and Appropriate
Vascular: plus 1 pedal and radial pulses
Data Reviewed
-
Radiology: Image Personally Visualized and interpreted (Chest x-ray reviewed on admission notable for interstitial edema bilaterally consistent with congestive heart failure)
Labs: Labs Reviewed by me (CBC BMP urinalysis)
Old Records: Reviewed (Reviewed previous creatinine level of 1.1 in the electronic medical record from March 2008)
Assessment/Plan
-
Impression:
Acute kidney
Congestive heart failure exacerbation
Bradycardia
Coronary artery disease with prior history of CABG and stenting
Diabetes
BPH
Hyperlipidemia
Anxiety
Plan:
EBENEZER:
-Recent creatinine baseline is unknown as patient recently moved up from [place] to assisted living [facility]
-His urinalysis is not consistent with diabetic nephropathy given the lack of albuminuria
-He may have a component of acute kidney injury from his CHF decompensation as his creatinine continues to improve with diuresis (i.e. pre renal stimulus)
-His urinalysis was otherwise bland
-His kidney ultrasound was notable for some cyst and he does have what may be a bladder mass or cyst which will need investigation as an outpatient by urology
-There was no obstructive uropathy noted on ultrasound
-His congestive heart failure symptoms continue to improve with IV Lasix which we can can continue
[2024-03-30 19:35] VITALS: BP 178/83
[2024-03-30] MEDS: APRESOLINE 50 MG PO (20:14)
[2024-03-30 21:22] LABS: Glucose - Point of Care 102 mg/dl (70-99)
[2024-03-30 23:27] VITALS: BP 121/48
[2024-03-31] VITALS (7 sets, daily range): BP systolic 131–171; BP diastolic 58–73; BMI 41.4
[2024-03-31] MEDS: HEPARIN 5000 UNITS SC ×3 (00:31→16:14)
[2024-03-31 08:44] LABS: Glucose - Point of Care 110 mg/dl (70-99)
[2024-03-31 08:44] LABS: Glucose - Point of Care 117 mg/dl (70-99)
[2024-03-31] MEDS: NOVOLOG FLEXPEN-LOW RESISTANCE SC ×2 (08:44→17:39)
[2024-03-31] MEDS: DITROPAN 5 MG PO ×2 (08:45→20:02)
[2024-03-31] MEDS: KCL 20 MEQ PO (08:45)
[2024-03-31] MEDS: PROTONIX 20 MG PO (08:45)
[2024-03-31] MEDS: PROSCAR 5 MG PO (08:45)
[2024-03-31] MEDS: FLOMAX 0.8 MG PO (08:45)
[2024-03-31] MEDS: VIBRAMYCIN 100 MG PO ×2 (08:45→20:01)
[2024-03-31] MEDS: TOPROL XL 50 MG PO ×2 (08:46→20:02)
[2024-03-31] MEDS: LIPITOR 40 MG PO (08:46)
[2024-03-31] MEDS: APRESOLINE 50 MG PO ×2 (08:46→20:01)
[2024-03-31] MEDS: ARICEPT 10 MG PO (08:46)
[2024-03-31] MEDS: NORVASC 10 MG PO (08:46)
[2024-03-31] MEDS: PLAVIX 75 MG PO (08:46)
[2024-03-31] MEDS: LASIX 40 MG IV (08:47)
[2024-03-31 09:02] LABS: % Basophils 0.8 % (0-2); % Eosinophils 3.9 % (0-6); % Immature Granulocytes 0.3 % (0-0.5); % Lymphocytes 20.3 % (20.5-51.1); % Monocytes 10.6 % (1.7-9.3); % Neutrophils 64.1 % (42.2-75.2); Absolute Basophils 0.1 10^3/uL (0-0.2); Absolute Eosinophils 0.2 10^3/uL (0-0.7); Absolute Lymphocytes 1.3 10^3/uL (1.2-3.4); Absolute Monocytes 0.7 10^3/uL (0.1-0.6); Hematocrit 36.2 % (39.0-52.0); Hemoglobin 11.7 g/dL (13.0-18.0); Mean Corp Hgb Conc. 32.3 g/dL (33.0-37.0); Mean Corpuscular Hgb 28.7 pg (27.0-31.0); Mean Corpuscular Volume 88.9 fL (80.0-94.0); Mean Platelet Volume 9.8 fL (7.4-10.4); Nucleated Red Blood Cells % 0 % (-); Platelet Count 210 10^3/uL (130-400); Red Blood Cell Count 4.07 10^6/uL (4.70-6.10); Red Cell Dist. Width 13.3 % (11.5-14.5); White Blood Cell Count 6.2 10^3/uL (4.8-10.8)
[2024-03-31] MEDS: LEXAPRO 10 MG PO (09:10)
[2024-03-31 09:25] LABS: ALT (SGPT) 15 U/L (0-50); AST (SGOT) 16 U/L (17-59); Alkaline Phosphatase 100 U/L (38-126); Blood Urea Nitrogen 26 mg/dl (9-20); Calcium 9.1 mg/dl (8.4-10.2); Carbon Dioxide 22 mmol/L (22-30); Chloride 108 mmol/L (98-107); Estimated Creatinine Clearance 42 ml/min; Glucose 114 mg/dl (70-99); Sodium 141 mmol/L (135-145); Total Bilirubin 0.7 mg/dl (0.2-1.3); Total Protein 6.7 g/dl (6.3-8.2)
--- NOTE | 2024-03-31 11:47 | W.PN.HOSP.TC ---
Addendum entered and electronically signed by Benigno Mclaughlin MD 03/31/24 13:17:
As per further communication with POA - since patient is not competent to make medical decisions - continue DNR/DNI
Echo with stage 2 diastolic dysfunction, moderate , mild-moderate TR and pulmonary HTN
V/Q scan with low probability of PE, no DVT on US LE
Original Note:
Today's Communication/Plan
-
loosing weight
wean off O2
cont diuresis
PT/OT
Assessment / Plan
Assessment / Plan
79yo M with PMHX of CAD s/p CABG 6 years ago, DM, BPH, CHF, anxiety, HTN, HLD, GERD came from [facility] assisted living with acute onset of dyspnea without hypoxia. ProBMP elevated to 6050 with b/l LE swelling and signs of vascular congestion on XR as
well as LLL consolidation. accidental findings of R renal mass
A/P:
#Dyspnea without hypoxia with concern for possible CHF
#Bradycardia
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
#LLL pneumonia
Cardiology consult: decreased BB
Lasix, daily weight, electrolytes, I&O
Echo
serial trops stable low
Telemetry, Atropin PRN
Minimally elevated ddimer with EBENEZER - most likely 2/2 acute disease, reasonable V/Q scan and LE US to rule out VTE
Ceftriaxone/Doxy
COVID-19, Influenza PCR neg
Legionella and S. Pneumonia urine Ag neg
TSH WNL
#EBENEZER
unclear baseline Cr
Follow Cr - improving with diuresis
FeNA 7.5% - most likely intrinsic component - nephrology consult
Renal US - renal mass
Obtain records
#Anterior to the bladder in the midline, there is an ovoid cystic mass with diameter 4.7 cm
MRI as condition improves
#Essential HTN
#GERD
#BPH
#HLD
cont home meds
watch for urinary retention
#DM type 2 with nephropathy
AccuCheck, Insulin SS, DM diet
Hold oral antiglycemic: stop metformin and pioglitazone on d/c
DVT ppx on Hep
DNR/DNI - discussed in details with patient
I have spent at least 39min reviewing chart, test results, communication with consultants and direct patient care
Anticipated Discharge: 24 - 48 hours
Subjective/Interval History
-
Date of Service: March 31, 2024
Objective Data
-
Labs:
Laboratory Results
03/31/24
08:31
WBC 6.2
Hgb 11.7 L
Hct 36.2 L
Plt Count 210
Sodium 141
Potassium 4.0
Chloride 108 H
Carbon Dioxide 22
BUN 26 H
Creatinine 1.7 H
Glucose 114 H
Calcium 9.1
Total Bilirubin 0.7
AST 16 L
ALT 15
Alkaline Phosphatase 100
Vital Signs:
Vital Signs
Temp Pulse Resp BP Pulse Ox
98 F 63 14 147/63 97
03/31/24 07:16 03/31/24 08:46 03/31/24 07:16 03/31/24 08:46 03/31/24 07:16
I&O
03/30/24 03/31/24 04/01/24
06:59 06:59 06:59
Intake Total 1560 / 1560
Output Total 925 / 925 1150 / 1150
Balance -925 / -925 410 / 410
Review of Systems
-
History Source: Patient
All other systems: Reviewed and negative
Physical Exam
-
General: No Apparent Distress
HEENT: Normocephalic
Respiratory: Clear to Auscultation
GI: Soft
Musculoskeletal: No Clubbing, No Cyanosis and No Edema
Neuro: Awake, Alert, Oriented and AO x 3
Psych: Calm
[2024-03-31 12:02] LABS: Glucose - Point of Care 162 mg/dl (70-99)
--- NOTE | 2024-03-31 12:05 | W.PN.CARDCBS ---
Addendum entered and electronically signed by Crescencio Johnson MD 03/31/24 13:27:
I saw and examined the patient.
The FLOOR SANDER or PA's note was reviewed and I agree with the note.
Comment: General: Well developed, well nourished in NAD.
Neck: Supple, no JVD, HJR, carotids +2 B/L, no bruits bilaterally.
Heart: Non displaced PMI, RRR, no murmurs, No S3, S4, no rubs.
Lungs: Scattered rhonchi
Extremities: No clubbing, cyanosis or edema bilaterally.
Neuro: Grossly nonfocal, awake, alert and oriented x3.
Difficult examination but appears to be improving. Renal function is stable and will continue IV Lasix for now.
Original Note:
Today's Communication / Plan
-
continue diuresis
wean supp O2
follow BPs
Impression / Plan
-
PCP: Dr. Edmundo Dozier
Pediatric Dermatologist: Adebayo Gutierrez in [place], [place]
Impression:
Presents 03/29/2024 with progressively worsening dyspnea on exertion, edema and weight gain
Acute heart failure with unknown ejection fraction, proBNP 6050
Possible pneumonia
EBENEZER, unknown baseline
Coronary artery disease
Status post CABG (at least 10 years ago at [facility])
Coronary stent
Paroxysmal atrial fibrillation
Implanted child monitor, Pinto device implanted 10/04/2020
Hypertension
Hyperlipidemia
Heart failure with unknown ejection fraction
Diabetes
ELIAS with CPAP
BPH
GERD
Old Strokes
Poor memory/dementia
Anxiety
Echo 03/29/2024: EF 56%, mild concentric LVH, stage II diastolic dysfunction, moderate LA dilation, MAC, mild MR, moderate AAS with mean gradient 30 mmHg, MOJGAN 1.6 cm�, mild to moderate TR, PAP 45 to 50 mmHg
Plan:
-Presents 03/29/2024 with progressively worsening dyspnea on exertion, edema and weight gain.
-VQ low prob for PE
-weight down 2 pounds overnight if accurate. Cr stable at 1.7. continue IV lasix diuresis. wean supp O2 as able. was on po lasix 40mg daily prior to admission
-echo with results as above, preserved EF, mod
-Toprol dose reduced this admission due to sinus bradycardia. Continue amlodipine 10 mg daily. hydralazine increased to 50 mg twice daily and BP trends appear to be improving
-Continue Plavix for history of stroke and CAD
-awaiting records from outside stapler coil unit Adebayo Gutierrez in [facility] , fax [phone].
HPI 03/29/2024:
Patient is a 79-year-old male with past medical history significant for coronary artery disease status post CABG and remote PCI, paroxysmal atrial fibrillation with reported long-term implantable monitor, hypertension, hyperlipidemia, heart failure
with unknown ejection fraction, type 2 diabetes, BPH, strokes, GERD, poor memory and anxiety who presents to emergency department 03/29/2024 with progressively worsening dyspnea on exertion and lower extremity edema x 1 month. Patient reports he
awoke this morning and had shortness of breath at rest as well as with minimal activity prompting him to come to emergency department. proBNP found to be elevated at 6050. Chest x-ray showed mild cardiomegaly with left basilar opacity concerning
for pneumonia. Initial troponin negative at 0.021. EKG showed sinus bradycardia with heart rates in the 50s and low 60s with first-degree AV block and occasional PVCs. Patient was COVID and flu negative. BUN 30, creatinine 1.9. D-dimer pending
I talked with patients son, Adebayo who is POA. He reports dad is poor historian. He thinks he had CABG at [facility] many years ago but cannot be sure. He has resided in [place] until September 2023 and was followed by Dr. Adebayo Gutierrez stapler coil unit there.
Son relocated patient to [facility] in assisted care in September 2023.
Progress Note - Pediatric Dermatologist
Subjective
Date of Service: March 31, 2024
resting comfortably. no complaints
Objective
Labs:
03/31/24 08:31
03/31/24 08:31
Labs
Hgb 11.7 g/dL (13.0-18.0) L 03/31/24 08:31
Hct 36.2 % (39.0-52.0) L 03/31/24 08:31
Plt Count 210 10^3/uL (130-400) 03/31/24 08:31
Sodium 141 mmol/L (135-145) 03/31/24 08:31
Potassium 4.0 mmol/L (3.5-5.1) 03/31/24 08:31
BUN 26 mg/dl (9-20) H 03/31/24 08:31
Creatinine 1.7 mg/dL (0.7-1.3) H 03/31/24 08:31
Glucose 114 mg/dl (70-99) H 03/31/24 08:31
Troponins
03/29/24 03/29/24 03/29/24
10:02 14:13 19:57
Troponin I 0.021 0.022 0.024
03/30/24 03/30/24
02:15 08:18
Troponin I 0.029 0.026
Vital Signs and I&O:
Vital Signs
Temp Pulse Resp BP Pulse Ox
98 F 63 14 147/63 97
03/31/24 07:16 03/31/24 08:46 03/31/24 07:16 03/31/24 08:46 03/31/24 07:16
Vital Signs
Temp Pulse Resp BP Pulse Ox
98 F 63 14 147/63 97
03/31/24 07:16 03/31/24 08:46 03/31/24 07:16 03/31/24 08:46 03/31/24 07:16
Intake & Output
12/01/1203/30/24 03/31/24 04/01/24
07:59 07:59 07:59 07:59
Intake Total 1560 / 1560
Output Total 925 / 925 1150 / 1150
Balance -925 / -925 410 / 410
Physical Exam
Physical Exam
GEN: No distress, awake, alert, oriented to self. on supp O2
HEENT: supple, anicteric, mmm, eomi
LUNGS: CTA B/L anterolaterally, no wheezes
CV: Reg, S1/S2, 2/6 syst LSB
ABD: soft, BS+, NT/ND
EXT: No cyanosis, clubbing. trace edema of B/L LE
NEURO: Gross non-focal
SKIN: Warm, pink, dry. No rash
[2024-03-31] MEDS: NOVOLOG FLEXPEN-LOW RESISTANCE 1 UNITS SC (13:59)
--- NOTE | 2024-03-31 14:02 | W.PN.NEPH.PH ---
Today's Communication / Plan
-
Follow BMP
Assessment/Plan
-
Impression:
Acute kidney
Congestive heart failure exacerbation
Bradycardia
Coronary artery disease with prior history of CABG and stenting
Diabetes
BPH
Hyperlipidemia
Anxiety
Plan:
Continue IV Lasix for now
Wean O2 supplemental
Follow BMP
I suspect that his baseline creatinine is likely closer to 1.5�1.7
Outpatient urologic evaluation of bladder mass or cyst
-
-
Date of Service: March 31, 2024
CC / HPI / ROS
-
Chief Complaint:
EBENEZER
History of Present Illness:
EBENEZER/CKD/creatinine stable at 1.7
Potassium normal
Weights down with Lasix
Remains on supplemental oxygen
Review of Systems:
No chest pain or shortness of breath
Labs
-
Labs:
WBC 6.2 10^3/uL (4.8-10.8) 03/31/24 08:31
RBC 4.07 10^6/uL (4.70-6.10) L 03/31/24 08:31
Hgb 11.7 g/dL (13.0-18.0) L 03/31/24 08:31
Hct 36.2 % (39.0-52.0) L 03/31/24 08:31
Plt Count 210 10^3/uL (130-400) 03/31/24 08:31
Sodium 141 mmol/L (135-145) 03/31/24 08:31
Potassium 4.0 mmol/L (3.5-5.1) 03/31/24 08:31
Chloride 108 mmol/L (98-107) H 03/31/24 08:31
Carbon Dioxide 22 mmol/L (22-30) 03/31/24 08:31
BUN 26 mg/dl (9-20) H 03/31/24 08:31
Creatinine 1.7 mg/dL (0.7-1.3) H 03/31/24 08:31
eGFR 40.50 03/31/24 08:31
Glucose 114 mg/dl (70-99) H 03/31/24 08:31
Calcium 9.1 mg/dl (8.4-10.2) 03/31/24 08:31
Woi-X-Jppjkhnkdpd Pept 6050 pg/ml 03/29/24 10:02
Albumin 4.0 g/dl (3.5-5.0) 03/31/24 08:31
Physical Exam
-
Vital Signs:
Vital Signs
Temp Pulse Resp BP Pulse Ox
98.2 F 59 23 132/61 97
03/31/24 11:00 03/31/24 11:00 03/31/24 11:00 03/31/24 11:00 03/31/24 11:00
Cardiovascular:: Regular rate and rhythm
Respiratory:: Bilateral: Coarse
Lung Excursion:: Normal
Abdomen:: Nontender and Soft
Bowel Sounds:: Normal
Extremity Edema:: +1: Bilateral:
--- NOTE | 2024-03-31 15:38 | CM ---
Patient seen at bedside with son Adebayo
Dx: CHF
Resides at the [facility]
Await PT/OT to eval
PLAN: [facility], await PT/OT evals
[2024-03-31] MEDS: STERILE WATER FOR INJECTION 10 ML IV (16:13)
[2024-03-31] MEDS: ROCEPHIN 1000 MG IV (16:14)
[2024-03-31 17:14] LABS: Glucose - Point of Care 127 mg/dl (70-99)
[2024-03-31] MEDS: ISMO 5 MG PO (17:43)
[2024-03-31 21:34] LABS: Glucose - Point of Care 108 mg/dl (70-99)
[2024-04-01] VITALS (9 sets, daily range): BP systolic 128–186; BP diastolic 60–93; PULSE 66; O2SAT 93; BMI 41.9
[2024-04-01] MEDS: HEPARIN 5000 UNITS SC ×3 (01:07→16:37)
[2024-04-01 07:18] LABS: Glucose - Point of Care 106 mg/dl (70-99)
[2024-04-01] MEDS: NOVOLOG FLEXPEN-LOW RESISTANCE SC ×3 (07:49→16:31)
[2024-04-01 08:24] LABS: Blood Urea Nitrogen 32 mg/dl (9-20); Calcium 8.8 mg/dl (8.4-10.2); Carbon Dioxide 21 mmol/L (22-30); Chloride 106 mmol/L (98-107); Estimated Creatinine Clearance 38 ml/min; Glucose 105 mg/dl (70-99); Potassium 4.4 mmol/L (3.5-5.1); Sodium 137 mmol/L (135-145); eGFR 35.44
[2024-04-01] MEDS: FLOMAX 0.8 MG PO (08:43)
[2024-04-01] MEDS: PROTONIX 20 MG PO (08:43)
[2024-04-01] MEDS: VIBRAMYCIN 100 MG PO ×2 (08:43→20:58)
[2024-04-01] MEDS: KCL 20 MEQ PO (08:44)
[2024-04-01] MEDS: NORVASC 10 MG PO (08:44)
[2024-04-01] MEDS: TOPROL XL 50 MG PO ×2 (08:44→20:58)
[2024-04-01] MEDS: DITROPAN 5 MG PO ×2 (08:44→20:58)
[2024-04-01] MEDS: PLAVIX 75 MG PO (08:44)
[2024-04-01] MEDS: APRESOLINE 50 MG PO ×2 (08:44→20:58)
[2024-04-01] MEDS: ARICEPT 10 MG PO (08:44)
[2024-04-01] MEDS: LEXAPRO 10 MG PO (08:44)
[2024-04-01] MEDS: LIPITOR 40 MG PO (08:44)
[2024-04-01] MEDS: PROSCAR 5 MG PO (08:44)
[2024-04-01] MEDS: LASIX 40 MG IV (08:45)
--- NOTE | 2024-04-01 10:44 | W.PN.CARDCBS ---
Addendum entered and electronically signed by Hazel Caban DO 04/01/24 14:16:
I saw and examined the patient.
The Valet Runner's note was reviewed and I agree with the note.
Comment: Patient seen and examined overall feeling better with less shortness of breath and improved edema. Anticipates returning to nursing facility tomorrow.
GEN: NAD.
HEENT: mmm
LUNGS: Bronchovesicular breath sounds, clear
CV: Reg, S1/S2, 2/6 syst LSB
ABD: soft, BS+, NT/ND
EXT: No edema
Plan:
Hypoxemic respiratory distress consistent with heart failure with preserved ejection fraction in the setting of left lower lobe pneumonia
-Initial proBNP 6050
-Volume status is improved with IV Lasix. Transition to oral Lasix in the morning; orders placed
-Elevated D-dimer 0.82� VQ scan low probability for pulmonary embolism. Lower extremity Dopplers negative for DVT
-2D echocardiogram with preserved LV systolic function with LVH and grade 2 diastolic dysfunction as well as moderate AAS, MAC with mild MR and mild to moderate TR with pulmonary hypertension, RVSP estimated 45-50 mmHg.
Left lower lobe pneumonia�antibiotics and pulmonary toilet per primary.
Sinus bradycardia on high dose metoprolol
-Monitor on telemetry
-Metoprolol dose reduced this admission. Continue Toprol-XL 50 mg twice daily.
-TSH within normal
Coronary artery disease with history of remote CABG
-Cardiac troponin not elevated.
-Presented on outpatient aspirin and Plavix
-Lipids 03/29/2024 TC 125, HDL 51, LDL 50, triglycerides 121, continue atorvastatin
History of stroke
-Continue Plavix/aspirin at this time
-Hypertension
- continue amlodipine, hydralazine, Imdur, metoprolol (reduce dose to 50 mg BID)
-Requested records from outside medical coding instructor Adebayo Gutierrez in [facility] , fax [phone].
Type 2 diabetes mellitus, HbA1C 6.1%
-Would hold metformin with renal insufficiency.
-Would also discontinue pioglitazone given admission for heart failure
Renal insufficiency/bladder mass or cyst
-Nephrology consulted
-Nephrology feels baseline creatinine likely 1.5�1.7
-Plan for outpatient urologic evaluation of bladder mass or cyst
Outpatient cardiac follow-up to be arranged
Will sign off, recall if needed
Original Note:
Today's Communication / Plan
-
consider transition to po lasix for AM
follow BPs, Cr
will arrange OP cardiac follow up
Impression / Plan
-
PCP: Dr. Edmundo Dozier
Advertising Internship: Adebayo Gutierrez in [place], [place]
Impression:
Presents 03/29/2024 with progressively worsening dyspnea on exertion, edema and weight gain
Acute heart failure with unknown ejection fraction, proBNP 6050
Possible pneumonia
EBENEZER, unknown baseline
Coronary artery disease
Status post CABG (at least 10 years ago at [place])
Coronary stent
Paroxysmal atrial fibrillation
Implanted library monitor, Pinto device implanted 10/04/2020
Hypertension
Hyperlipidemia
Heart failure with unknown ejection fraction
Diabetes
ELIAS with CPAP
BPH
GERD
Old Strokes
Poor memory/dementia
Anxiety
Echo 03/29/2024: EF 56%, mild concentric LVH, stage II diastolic dysfunction, moderate LA dilation, MAC, mild MR, moderate AAS with mean gradient 30 mmHg, MOJGAN 1.6 cm�, mild to moderate TR, PAP 45 to 50 mmHg
Plan:
-Presents 03/29/2024 with progressively worsening dyspnea on exertion, edema and weight gain.
-weight trending up but suspect inaccurate. Cr up to 1.9. has been weaned off supp O2. consider transition to po lasix for 04/02
-echo with results as above, preserved EF, mod
-Toprol dose reduced this admission due to sinus bradycardia. Continue amlodipine 10 mg daily. hydralazine increased to 50 mg twice daily and BP trends appear to be improving, follow
-Continue Plavix for history of stroke and CAD
-awaiting records from outside medical coding instructor Adebayo Gutierrez in [facility] , fax [phone].
-will arrange OP cardiac follow up. previously lived in [place] but now resides at [facility]
HPI 03/29/2024:
Patient is a 79-year-old male with past medical history significant for coronary artery disease status post CABG and remote PCI, paroxysmal atrial fibrillation with reported long-term implantable monitor, hypertension, hyperlipidemia, heart failure
with unknown ejection fraction, type 2 diabetes, BPH, strokes, GERD, poor memory and anxiety who presents to emergency department 03/29/2024 with progressively worsening dyspnea on exertion and lower extremity edema x 1 month. Patient reports he
awoke this morning and had shortness of breath at rest as well as with minimal activity prompting him to come to emergency department. proBNP found to be elevated at 6050. Chest x-ray showed mild cardiomegaly with left basilar opacity concerning
for pneumonia. Initial troponin negative at 0.021. EKG showed sinus bradycardia with heart rates in the 50s and low 60s with first-degree AV block and occasional PVCs. Patient was COVID and flu negative. BUN 30, creatinine 1.9. D-dimer pending
I talked with patients son, Adebayo who is POA. He reports dad is poor historian. He thinks he had CABG at [facility] many years ago but cannot be sure. He has resided in [place] until September 2023 and was followed by Dr. Adebayo Gutierrez medical coding instructor there.
Son relocated patient to [facility] in assisted care in September 2023.
Progress Note - Advertising Internship
Subjective
Date of Service: April 01, 2024
reports feeling well. no issues overnight
Objective
Labs:
03/31/24 08:31
04/01/24 07:24
Labs
Hgb 11.7 g/dL (13.0-18.0) L 03/31/24 08:31
Hct 36.2 % (39.0-52.0) L 03/31/24 08:31
Plt Count 210 10^3/uL (130-400) 03/31/24 08:31
Sodium 137 mmol/L (135-145) 04/01/24 07:24
Potassium 4.4 mmol/L (3.5-5.1) 04/01/24 07:24
BUN 32 mg/dl (9-20) H 04/01/24 07:24
Creatinine 1.9 mg/dL (0.7-1.3) H 04/01/24 07:24
Glucose 105 mg/dl (70-99) H 04/01/24 07:24
Troponins
03/29/24 03/29/24 03/30/24
14:13 19:57 02:15
Troponin I 0.022 0.024 0.029
03/30/24
08:18
Troponin I 0.026
Vital Signs and I&O:
Vital Signs
Temp Pulse Resp BP Pulse Ox
98.4 F 70 21 173/78 96
04/01/24 07:00 04/01/24 07:00 04/01/24 07:00 04/01/24 07:00 04/01/24 08:59
Vital Signs
Temp Pulse Resp BP Pulse Ox
98.4 F 70 21 173/78 96
04/01/24 07:00 04/01/24 07:00 04/01/24 07:00 04/01/24 07:00 04/01/24 08:59
Intake & Output
03/30/24 03/31/24 04/01/24 04/02/24
07:59 07:59 07:59 07:59
Intake Total 1560 / 1560 960 / 960
Output Total 925 / 925 1150 / 1150 575 / 575 100 / 100
Balance -925 / -925 410 / 410 385 / 385 -100 / -100
Physical Exam
Physical Exam
GEN: No distress, awake, alert. sitting in chair
HEENT: supple, anicteric, mmm, eomi
LUNGS: few crackles at B/L bases, no wheezes
CV: Reg, S1/S2, 2/6 syst LSB
ABD: soft, BS+, NT/ND
EXT: No cyanosis, clubbing, edema
NEURO: Gross non-focal
SKIN: Warm, pink, dry. No rash
[2024-04-01 11:49] LABS: Glucose - Point of Care 105 mg/dl (70-99)
--- NOTE | 2024-04-01 12:05 | W.PN.HOSP.TC ---
Addendum entered and electronically signed by Benigno Mclaughlin MD 04/01/24 12:10:
#obesity, morbid
advise to decrease calorie intake
Original Note:
Today's Communication/Plan
-
off O2 - Lasix switched to PO
Cr increased - follow Cr in AM
MRI abd for renal mass
Assessment / Plan
Assessment / Plan
79yo M with PMHX of CAD s/p CABG 6 years ago, DM, BPH, CHF, anxiety, HTN, HLD, GERD came from [facility] assisted living with acute onset of dyspnea without hypoxia. ProBMP elevated to 6050 with b/l LE swelling and signs of vascular congestion on XR as
well as LLL consolidation. accidental findings of R renal mass
A/P:
#Dyspnea without hypoxia with concern for possible CHF
#Bradycardia
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
#LLL pneumonia
Cardiology consult: decreased BB
Lasix, daily weight, electrolytes, I&O
Echo
serial trops stable low
Telemetry, Atropin PRN
Minimally elevated ddimer with EBENEZER - most likely 2/2 acute disease, reasonable V/Q scan and LE US to rule out VTE
Ceftriaxone/Doxy
COVID-19, Influenza PCR neg
Legionella and S. Pneumonia urine Ag neg
TSH WNL
#EBENEZER
unclear baseline Cr
Follow Cr - improving with diuresis
FeNA 7.5% - most likely intrinsic component - nephrology consult
#Anterior to the bladder in the midline, there is an ovoid cystic mass with diameter 4.7 cm
MRI abd
#Essential HTN
#GERD
#BPH
#HLD
cont home meds
watch for urinary retention
#DM type 2 with nephropathy
AccuCheck, Insulin SS, DM diet
Hold oral antiglycemic: stop metformin and pioglitazone on d/c
DVT ppx on Hep
DNR/DNI - discussed in details with patient
I have spent at least 39min reviewing chart, test results, communication with consultants and direct patient care
Anticipated Discharge: 24 - 48 hours
Subjective/Interval History
-
Date of Service: April 01, 2024
Objective Data
-
Labs:
Laboratory Results
04/01/24
07:24
Sodium 137
Potassium 4.4
Chloride 106
Carbon Dioxide 21 L
BUN 32 H
Creatinine 1.9 H
Glucose 105 H
Calcium 8.8
Vital Signs:
Vital Signs
Temp Pulse Resp BP Pulse Ox
98.4 F 70 21 173/78 96
04/01/24 07:00 04/01/24 07:00 04/01/24 07:00 04/01/24 07:00 04/01/24 08:59
I&O
03/31/24 04/01/24 04/02/24
06:59 06:59 06:59
Intake Total 1560 / 1560 960 / 960
Output Total 1150 / 1150 575 / 575 100 / 100
Balance 410 / 410 385 / 385 -100 / -100
Review of Systems
-
History Source: Patient
All other systems: Reviewed and negative
Physical Exam
-
General: No Apparent Distress
Respiratory: Clear to Auscultation
Cardiac: Regular Rhythm
GI: Soft, Nontender and Nondistended
Musculoskeletal: No Clubbing, No Cyanosis and No Edema
Neuro: Awake, Alert, Oriented and AO x 3
Psych: Calm
--- NOTE | 2024-04-01 13:06 | W.PN.NEPH.PH ---
Today's Communication / Plan
-
po lasix
Assessment/Plan
-
Impression:
Acute kidney
Congestive heart failure exacerbation
Bradycardia
Coronary artery disease with prior history of CABG and stenting
Diabetes
BPH
Hyperlipidemia
Anxiety
Plan:
Converted to p.o. Lasix
Follow BMP
I suspect that his baseline creatinine is likely closer to 1.5�1.7
Outpatient urologic evaluation of bladder mass or cyst
Planning
-
-
Date of Service: April 01, 2024
CC / HPI / ROS
-
Chief Complaint:
EBENEZER
History of Present Illness:
EBENEZER/CKD/creatinine stable at 1.9
Potassium normal
Weights down with Lasix
Remains on supplemental oxygen
Review of Systems:
No chest pain or shortness of breath
Labs
-
Labs:
WBC 6.2 10^3/uL (4.8-10.8) 03/31/24 08:31
RBC 4.07 10^6/uL (4.70-6.10) L 03/31/24 08:31
Hgb 11.7 g/dL (13.0-18.0) L 03/31/24 08:31
Hct 36.2 % (39.0-52.0) L 03/31/24 08:31
Plt Count 210 10^3/uL (130-400) 03/31/24 08:31
Sodium 137 mmol/L (135-145) 04/01/24 07:24
Potassium 4.4 mmol/L (3.5-5.1) 04/01/24 07:24
Chloride 106 mmol/L (98-107) 04/01/24 07:24
Carbon Dioxide 21 mmol/L (22-30) L 04/01/24 07:24
BUN 32 mg/dl (9-20) H 04/01/24 07:24
Creatinine 1.9 mg/dL (0.7-1.3) H 04/01/24 07:24
eGFR 35.44 04/01/24 07:24
Glucose 105 mg/dl (70-99) H 04/01/24 07:24
Calcium 8.8 mg/dl (8.4-10.2) 04/01/24 07:24
Vek-I-Fstoblvnkas Pept 6050 pg/ml 03/29/24 10:02
Albumin 4.0 g/dl (3.5-5.0) 03/31/24 08:31
Physical Exam
-
Vital Signs:
Vital Signs
Temp Pulse Resp BP Pulse Ox
98.4 F 70 21 173/78 96
04/01/24 07:00 04/01/24 07:00 04/01/24 07:00 04/01/24 07:00 04/01/24 08:59
Cardiovascular:: Regular rate and rhythm
Respiratory:: Bilateral: CTA
Lung Excursion:: Normal
Abdomen:: Nontender and Soft
Bowel Sounds:: Normal
Extremity Edema:: None: Bilateral:
--- NOTE | 2024-04-01 14:47 | W.PN.UPDATE ---
Update Note
Progress Note Update
Will cancel MRI of the pelvis since without contrast will be unreliable and will be cautious to use contrast with worsening Cr not to increase risk of side effects.
Discussed with POA outpatient Urology appt for Anterior to the bladder in the midline, there is an ovoid cystic mass with diameter 4.7 cm. - he agreed and verbalized understanding of the instructions
--- NOTE | 2024-04-01 16:00 | PTCARENOTE ---
Pt 1500 blood pressure 175/93, asymptomatic. MD made aware, no new orders at this time. Plan of care ongoing.
[2024-04-01 16:29] LABS: Glucose - Point of Care 117 mg/dl (70-99)
[2024-04-01] MEDS: ROCEPHIN 1000 MG IV (16:37)
[2024-04-01] MEDS: STERILE WATER FOR INJECTION 10 ML IV (16:38)
[2024-04-01] MEDS: ISMO 5 MG PO (17:17)
[2024-04-01 21:21] LABS: Glucose - Point of Care 121 mg/dl (70-99)
[2024-04-02] MEDS: HEPARIN 5000 UNITS SC ×2 (00:01→09:01)
[2024-04-02 03:13] VITALS: BP 145/69
[2024-04-02 07:00] VITALS: BP 163/68
[2024-04-02 07:24] LABS: Glucose - Point of Care 109 mg/dl (70-99)
[2024-04-02] MEDS: NOVOLOG FLEXPEN-LOW RESISTANCE SC ×2 (08:55→12:01)
[2024-04-02] MEDS: TOPROL XL 50 MG PO (08:58)
[2024-04-02] MEDS: KCL 20 MEQ PO (08:59)
[2024-04-02] MEDS: DITROPAN 5 MG PO (08:59)
[2024-04-02] MEDS: VIBRAMYCIN 100 MG PO (08:59)
[2024-04-02] MEDS: PROTONIX 20 MG PO (08:59)
[2024-04-02] MEDS: LEXAPRO 10 MG PO (08:59)
[2024-04-02] MEDS: PLAVIX 75 MG PO (08:59)
[2024-04-02] MEDS: APRESOLINE 50 MG PO (08:59)
[2024-04-02] MEDS: ARICEPT 10 MG PO (08:59)
[2024-04-02] MEDS: LIPITOR 40 MG PO (08:59)
[2024-04-02] MEDS: NORVASC 10 MG PO (09:00)
[2024-04-02] MEDS: LASIX 60 MG PO (09:00)
[2024-04-02] MEDS: FLOMAX 0.8 MG PO (09:00)
[2024-04-02] MEDS: PROSCAR 5 MG PO (09:01)
--- NOTE | 2024-04-02 09:04 | PN.CDI ---
CDI
- -
CDI:
Physician Documentation Request
Admit Date: 03/29/24 14:21
Dear Doctor Melissa,
Please review the following and provide your response in the progress notes.
Clinical Indicators:
Pt admitted with heart failure, pneumonia and EBENEZER.
03/31 Progress note: 'EBENEZER/CKD/creatinine stable at 1.7...I suspect that his baseline creatinine is likely closer to 1.5�1.7'
Laboratory Tests
03/29/24 03/30/24 03/31/24
10:02 08:18 08:31
Creatinine 1.9 H 1.7 H 1.7 H
eGFR 35.44 40.50 40.50
Please clarify which of the following represents the suspected stage patient's CKD:
CKD, please provide stage - see criteria
Other
Stages of Chronic Kidney Disease*
Level Description GFR
G1 Normal or High >90
G2 Mildly decreased 60-89
G3a Mildly to moderately decreased 45-59
G3b Moderately to severely decreased 30-44
G4 Severely decreased 15-29
G5 Kidney failure <15
Use of terms such as suspected, likely, concern for, or probable (associated with a specific diagnosis that is being evaluated, monitored, or treated as if it exists) are acceptable and can be coded in the inpatient setting, when documented at the
time of discharge.
Thank you,
Ev Walters RN, BSN
CDI Specialist
Available via [place] [employer]
Please use your independent medical judgment in providing your response.
*Source: Kidney Disease: Improving Global Outcomes (KDIGO) 2012
[2024-04-02 10:56] LABS: Blood Urea Nitrogen 34 mg/dl (9-20); Calcium 8.8 mg/dl (8.4-10.2); Carbon Dioxide 21 mmol/L (22-30); Chloride 107 mmol/L (98-107); Estimated Creatinine Clearance 36 ml/min; Glucose 185 mg/dl (70-99); Potassium 4.3 mmol/L (3.5-5.1); Sodium 136 mmol/L (135-145); eGFR 33.32
--- NOTE | 2024-04-02 11:08 | W.PN.HOSP.TC ---
Today's Communication/Plan
-
dc
Assessment / Plan
Assessment / Plan
79yo M with PMHX of CAD s/p CABG 6 years ago, DM, BPH, CHF, anxiety, HTN, HLD, GERD came from [facility] assisted [facility] with acute onset of dyspnea without hypoxia. ProBMP elevated to 6050 with b/l LE swelling and signs of vascular congestion on XR as
well as LLL consolidation. accidental findings of ovoid cystic mass to the anterior to the bladder in the midline - outpatient Urology, son was informed ands agreeable with plan. Cr mildly elevated but with very slight variation on the day of D/C.
BMP advised to be repeated in 1 week with PCP. Medically stable for d/c and remain on RA. Not febrile and with normal WBC on the day of d/c - reasonable to complete oral Abx for pneumonia. Patient feeling much better on the day of D/C. Metformin and
Pioglitazone stopped, but blood sugars remained 100-110 for 48h before d/c only on DM diet. Will defer further antidiabetics to PCP
A/P:
#Dyspnea without hypoxia with concern for possible CHF
#Bradycardia
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
#LLL pneumonia
Cardiology consult: decreased BB
Lasix, daily weight, electrolytes, I&O
Echo
serial trops stable low
Telemetry, Atropin PRN
Minimally elevated ddimer with EBENEZER - most likely 2/2 acute disease, reasonable V/Q scan and LE US to rule out VTE
Ceftriaxone/Doxy
COVID-19, Influenza PCR neg
Legionella and S. Pneumonia urine Ag neg
TSH WNL
#EBENEZER
unclear baseline Cr
Follow Cr - improving with diuresis
FeNA 7.5% - most likely intrinsic component - nephrology consult
#Anterior to the bladder in the midline, there is an ovoid cystic mass with diameter 4.7 cm
MRI abd
#Essential HTN
#GERD
#BPH
#HLD
cont home meds
watch for urinary retention
#DM type 2 with nephropathy
AccuCheck, Insulin SS, DM diet
Hold oral antiglycemic: stop metformin and pioglitazone on d/c
DVT ppx on Hep
DNR/DNI - discussed in details with patient
I have spent at least 39min reviewing chart, test results, communication with consultants and direct patient care
Anticipated Discharge: Today
Subjective/Interval History
-
Date of Service: April 02, 2024
Objective Data
-
Labs:
Laboratory Results
04/02/24
09:58
Sodium 136
Potassium 4.3
Chloride 107
Carbon Dioxide 21 L
BUN 34 H
Creatinine 2.0 H
Glucose 185 H
Calcium 8.8
Vital Signs:
Vital Signs
Temp Pulse Resp BP Pulse Ox
98.8 F 68 19 163/68 93
04/02/24 07:00 04/02/24 07:00 04/02/24 07:00 04/02/24 07:00 04/02/24 07:00
I&O
04/01/24 04/02/24 04/03/24
06:59 06:59 06:59
Intake Total 960 / 960 240 / 240
Output Total 575 / 575 1100 / 1100
Balance 385 / 385 -860 / -860
Physical Exam
-
General: No Apparent Distress
HEENT: Normocephalic
Respiratory: Clear to Auscultation
Musculoskeletal: No Clubbing, No Cyanosis and No Edema
Neuro: Awake, Alert, Oriented and AO x 3
Psych: Calm
--- NOTE | 2024-04-02 11:19 | W.DCSUMMARY ---
Discharge Summary
Discharge Data
Date of Admission: 03/29/24
Date of Discharge: 04/02/24
-
Pending Results: No
Hospital Course
9yo M with PMHX of CAD s/p CABG 6 years ago, DM, BPH, CHF, anxiety, HTN, HLD, GERD came from [facility] assisted [facility] with acute onset of dyspnea without hypoxia. ProBMP elevated to 6050 with b/l LE swelling and signs of vascular congestion on XR as
well as LLL consolidation. Echo showed diastolic dysfunction grade 2, EF 56%, moderate , mild-moderate TR with elevated pulmonary pressures. Improved on Lasix. accidental findings of ovoid cystic mass to the anterior to the bladder in the midline
- outpatient Urology, son was informed ands agreeable with plan. Cr mildly elevated but with very slight variation on the day of D/C. BMP advised to be repeated in 1 week with PCP. Medically stable for d/c and remain on RA. Not febrile and with
normal WBC on the day of d/c - reasonable to complete oral Abx for pneumonia. Patient feeling much better on the day of D/C. Metformin and Pioglitazone stopped, but blood sugars remained 100-110 for 48h before d/c only on DM diet. Will defer further
antidiabetics to PCP
I have spent at least 39min reviewing chart, test results, communication with consultants and direct patient care
Patient was managed for:
#Dyspnea without hypoxia with acute HFpEF exacerbation
#Moderate
#Pulmonary HTN
#Bradycardia
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
#LLL pneumonia
#EBENEZER on CKD stage 3
#Anterior to the bladder in the midline, there is an ovoid cystic mass with diameter 4.7 cm
#Essential HTN
#GERD
#BPH
#HLD
#DM type 2 with nephropathy
Discharge Plan
-
Patient Disposition: Assisted Living
Discharge Diagnosis/Procedures: CHF
Diet: Diabetic, Carb Controlled and No added salt
Activity: As tolerated
Blood Work: repeat BMP with your PCP in 1 week
Activity Restrictions/Additional Instructions:
Please measure blood sugar every morning and provide log to PCP in 1 week
Instructions: *PCP/Other Tie In Machine Operator Heart Failure Instructions
Referrals:
Nellie Tenorio CRNP [Specified Professional Personl] - 04/08/24 1:00 pm (You have a cardiology follow up appointment at the [place] office. Please call with questions. )
Edmundo Dozier MD [Family Provider] -
Corbin Galloway MD [Active] - in one to two months (Anterior to the bladder in the midline, there is an ovoid cystic mass with diameter 4.7 cm.)
Prescriptions:
New
hydralazine 50 mg Tablet
50 mg PO TID Qty: 90 0RF
furosemide 20 mg Tablet
60 mg PO DAILY Qty: 30 0RF
doxycycline hyclate 100 mg Capsule
100 mg PO Q12 Qty: 6 0RF
metoprolol succinate 50 mg Tablet Extended Release 24 Hr
50 mg PO BID Qty: 60 0RF
cefdinir 300 mg capsule
300 mg PO BID Qty: 6 0RF
Continued
atorvastatin 40 mg Tablet
40 mg PO DAILY
donepezil 10 mg Tablet
10 mg PO DAILY
clopidogrel 75 mg Tablet
75 mg PO DAILY
pantoprazole 20 mg Tablet,Delayed Release (Dr/Ec)
20 mg PO DAILY
tamsulosin 0.4 mg Capsule
0.8 mg PO DAILY
amlodipine 10 mg Tablet
10 mg PO DAILY
isosorbide mononitrate 10 mg Tablet
5 mg PO QPM
oxybutynin chloride 5 mg Tablet
5 mg PO BID
finasteride 5 mg Tablet
5 mg PO DAILY
escitalopram oxalate 10 mg Tablet
10 mg PO DAILY
melatonin 5 mg Tablet
5 mg PO HS
potassium chloride 20 mEq Tablet Extended Release
20 meq PO DAILY
Discontinued
furosemide 40 mg Tablet
40 mg PO DAILY
metformin 500 mg Tablet
500 mg PO BID
metoprolol succinate 100 mg Tablet Extended Release 24 Hr
100 mg PO BID
pioglitazone 45 mg Tablet
45 mg PO DAILY
hydralazine 25 mg Tablet
25 mg PO BID
Discharge Orders:
Discharge Patient (As Directed); Ordered 04/02/24
Ordered By: Benigno Mclaughlin
Discharge Date and Time
Print Language: [place]
--- NOTE | 2024-04-02 11:46 | W.PN.NEPH.PH ---
Today's Communication / Plan
-
No new recommendation
Assessment/Plan
-
Impression:
Acute kidney
Congestive heart failure exacerbation
Bradycardia
Coronary artery disease with prior history of CABG and stenting
Diabetes
BPH
Hyperlipidemia
Anxiety
Plan:
Converted to p.o. Lasix
Follow BMP
Creatinine unchanged at
I suspect that his baseline creatinine is likely closer to 1.5�1.7
Outpatient urologic evaluation of bladder mass or cyst
Planning
-
-
Date of Service: April 02, 2024
CC / HPI / ROS
-
Chief Complaint:
EBENEZER
History of Present Illness:
EBENEZER/CKD/creatinine stable at 2
Potassium normal
Weights down with Lasix
Remains on supplemental oxygen
Review of Systems:
No chest pain or shortness of breath
Nonoliguric around 1 L
Labs
-
Labs:
WBC 6.2 10^3/uL (4.8-10.8) 03/31/24 08:31
RBC 4.07 10^6/uL (4.70-6.10) L 03/31/24 08:31
Hgb 11.7 g/dL (13.0-18.0) L 03/31/24 08:31
Hct 36.2 % (39.0-52.0) L 03/31/24 08:31
Plt Count 210 10^3/uL (130-400) 03/31/24 08:31
Sodium 136 mmol/L (135-145) 04/02/24 09:58
Potassium 4.3 mmol/L (3.5-5.1) 04/02/24 09:58
Chloride 107 mmol/L (98-107) 04/02/24 09:58
Carbon Dioxide 21 mmol/L (22-30) L 04/02/24 09:58
BUN 34 mg/dl (9-20) H 04/02/24 09:58
Creatinine 2.0 mg/dL (0.7-1.3) H 04/02/24 09:58
eGFR 33.32 04/02/24 09:58
Glucose 185 mg/dl (70-99) H 04/02/24 09:58
Calcium 8.8 mg/dl (8.4-10.2) 04/02/24 09:58
Xzg-A-Rcujdpytzxg Pept 6050 pg/ml 03/29/24 10:02
Albumin 4.0 g/dl (3.5-5.0) 03/31/24 08:31
Physical Exam
-
Vital Signs:
Vital Signs
Temp Pulse Resp BP Pulse Ox
98.8 F 68 19 163/68 93
04/02/24 07:00 04/02/24 07:00 04/02/24 07:00 04/02/24 07:00 04/02/24 07:00
Cardiovascular:: Regular rate and rhythm
Respiratory:: Bilateral: CTA
Lung Excursion:: Normal
Abdomen:: Nontender and Soft
Bowel Sounds:: Normal
Extremity Edema:: None: Bilateral:
[2024-04-02 11:52] VITALS: BP 162/79
[2024-04-02 12:00] LABS: Glucose - Point of Care 115 mg/dl (70-99)
--- NOTE | 2024-04-02 14:16 | CM ---
Addendum entered by Lavinia Granados 04/02/24 14:18:
[facility]
Report Prudencio [phone]

Original Note:
Patient is for discharge to home today back to the [facility], patient is currently ambulating 65 feet without a device room air, patient's son to transport patient at 3pm today.
Plan; Patient to return to the [facility] at 3pm.
--- NOTE | 2024-04-06 09:50 | W.HF.CON ---
Heart Failure
- LV Function
Left ventricular function study result: LV Ejection fraction >/= 50%
Ejection Fraction Percentage: 56
- ARNI
Patient already on ARNI: No
Heart Failure ARNI Not Indicated: LV Ejection Fraction >/= 40%
- ACEI/ARB
Patient already on ACEI/ARB: No
Heart Failure ACEI/ARB Not Indicated: LV Ejection Fraction > 40%
- Beta Tomasa
Patient already on Evidence Based Beta Tomasa: Yes
- Mineralocorticord Receptor Antagonist
Patient already on MRA: No
Heart Failure MRA Not Indicated: LV Ejection Fraction > 40%
- SGLT-2 Inhibitor
Patient already on SGLT-2 Inhibitor: No
Heart Failure SGLT-2 Inhibitor Not Indicated: LV Ejection Fraction >40%
- Hydralazine & Isosorbide Dinitrate
Patient already on Hydralazine & Isosorbide Dinitrate: Yes
- Afib Anticoagulation
Patient already on Anticoagulation for Afib: No
Heart Failure Afib Anticoagulation Contraindication: History of Falls
- NYHA CHF Classification
NYHA CHF Classification Level: Class III - Symptoms w/ min exertion, interferes w/ nml daily activity (LLL pneumonia)
- ACC/AHA Stage
ACC/AHA Stage: Stage C: Symptomatic Heart Failure
== END 2024-04-02 15:45 | disposition home health service (06) | DRG 291 ==
LOC: 4 WEST ACU 14:21
PROVIDERS: ADMITTING PHYSICIAN Internal Medicine; CONSULT PHYSICIAN Internal Medicine Cardiovascular Disease; CONSULT PHYSICIAN Specialist; EMERGENCY PHYSICIAN Emergency Medicine; FAMILY PHYSICIAN Family Medicine
DX: I13.0 Hypertensive heart and chronic kidney disease with heart failure and stage 1 through stage 4 chronic kidney disease, or unspecified chronic kidney disease (principal); J18.9 Pneumonia, unspecified organism; J96.01 Acute respiratory failure with hypoxia; N17.9 Acute kidney failure, unspecified; F03.94 Unspecified dementia, unspecified severity, with anxiety; Z68.41 Body mass index [BMI] 40.0-44.9, adult; Z11.52 Encounter for screening for COVID-19; I50.9 Heart failure, unspecified; Z87.891 Personal history of nicotine dependence; N18.30 Chronic kidney disease, stage 3 unspecified; E11.22 Type 2 diabetes mellitus with diabetic chronic kidney disease; I48.0 Paroxysmal atrial fibrillation; Z79.02 Long term (current) use of antithrombotics/antiplatelets; Z79.82 Long term (current) use of aspirin; I27.20 Pulmonary hypertension, unspecified; K21.9 Gastro-esophageal reflux disease without esophagitis; E66.01 Morbid (severe) obesity due to excess calories; Z59.89 Other problems related to housing and economic circumstances
CPT/HCPCS: 71046; 76770; 78582; 80048; 80053; 80061; 81003; 82570; 82962; 83036; 83735; 83880; 84300; 84443; 84484; 85025; 85379; 87449; 87502; 87811; 87899; 93005; 93306; 93970; 96374; 97162; 97166; 99285; A9540; A9567

== ENCOUNTER → 2024-08-25 11:59 | Outpatient (REF) | payer OTHER, SELFPAY | LOC: HWRAD 11:59 | PROVIDERS: ATTENDING PHYSICIAN Internal Medicine Cardiovascular Disease; FAMILY PHYSICIAN Family Medicine | DX: I48.0 Paroxysmal atrial fibrillation (principal); R00.1 Bradycardia, unspecified; N28.9 Disorder of kidney and ureter, unspecified; I50.32 Chronic diastolic (congestive) heart failure | CPT/HCPCS: 71046 ==

== ENCOUNTER → 2025-04-20 14:23 | Outpatient (REF) | payer OTHER, SELFPAY | LOC: HWRAD 14:23 | PROVIDERS: ATTENDING PHYSICIAN Internal Medicine Cardiovascular Disease; FAMILY PHYSICIAN Family Medicine | DX: R06.02 Shortness of breath (principal) | CPT/HCPCS: 71046 ==